=== PATIENT | male | born 1965 | race Caucasian/White ===

== ENCOUNTER 2016-10-30 02:46 | Inpatient (IN) | payer OTHER ==
[~2016-10-30] VITALS: Ht 180.3 cm; Wt 88.7 kg
[2016-10-30] VITALS (25 sets, daily range): BP systolic 98–134; BP diastolic 71–102; PULSE 73–114; TEMP 36.5–36.8; O2SAT 86–99; Ht 180.3 cm; Wt 88.7 kg
[~2016-10-30 02:46] MED LIST: AMT10 PO
--- NOTE | 2016-10-30 02:54 | EMERGENCY ROOM VISIT NOTE ---
History Report prepared by Nicholas: Tonia Mittal Under the Supervision of: Dr. Layton Diaz M.D. First contact with patient: 02:46 Stated Complaint: CHEST PAIN/HEART ALERT History of Present Illness The patient is a 50 year old male who presents to the Emergency Room with complaints of intermittent chest pain over the last few days. He currently rates his discomfort as a 6.5/10 in severity. The patient states that over the last few days he has had intermittent chest pain, but states that this evening he developed crushing substernal chest pain that radiates into his neck. He describes his neck pain as a brain freeze. The patient states that earlier this evening he had pain radiate into his back. He additionally associates nausea with his symptoms today. The patient states that he has been a smoker for the past 38 years, noting that he smokes one pack per day. He denies any personal history of heart disease, or any active medical problems. The patient notes a family history of hypertension, but denies any family history of heart disease. The patient states that he took 324 mg of aspirin prior to arrival. The patient denies taking any daily medications. EMS elected not to give the patient nitroglycerin, because the patient was initially hypotensive. Source of History: patient Onset: last few days Position: chest Symptom Intensity: 6.5/10 Quality: other (crushing) Timing: intermittent Associated Symptoms: + back pain, + nausea, + neck pain Review of Systems See HPI for pertinent positives & negatives. A total of 10 systems reviewed and were otherwise negative. Past Medical & Surgical Medical Problems: (1) Acute AR (2) No chronic problems Family History Hypertension Social History Smoking Status: Current Every Day Smoker Marital Status: Housing Status: lives with significant other Occupation Status: employed Current/Historical Medications No Active Prescriptions or Reported Meds Allergies Coded Allergies: No Known Allergies (Unverified , 10/30/16) Physical Exam Vital Signs Date Time Temp Pulse Resp B/P Pulse Ox O2 Delivery O2 Flow Rate FiO2 10/30/16 05:40 87 16 138/85 98 Nasal Cannula 2 10/30/16 05:30 85 16 132/87 98 Nasal Cannula 2 10/30/16 05:25 87 16 124/98 98 Nasal Cannula 2 10/30/16 03:00 86 20 116/92 Nasal Cannula 4.0 10/30/16 02:58 87 136/105 10/30/16 02:51 36.5 118 24 136/105 99 Room Air 10/30/16 02:50 108 10/30/16 02:48 Room Air Physical Exam GENERAL: Patient is ill appearing, mild distress, diaphoretic HEENT: No acute trauma, normocephalic atraumatic, mucous membranes moist, no nasal congestion, no scleral icterus. NECK: No stridor, no adenopathy, no meningismus, trachea is midline. LUNGS: No dyspnea. Clear to auscultation and equal bilaterally. No wheeze, no rhonchi. HEART: Irregular rate that is tachycardic. No murmurs, rubs, gallops appreciated. ABDOMEN: Soft, nontender, bowel sounds positive, no masses appreciated, no peritonitis. BACK: No midline tenderness, no CVA tenderness EXTREMITIES: Normal motion all extremities, no cyanosis, no edema. NEUROLOGIC: Alert and oriented, no acute motor or sensory deficits, no focal weakness, cranial nerves grossly intact. SKIN: No rash, no jaundice, no diaphoresis. Medical Decision & Procedures ER Provider Diagnostic Interpretation: X ray results are stated below per my interpretation: Chest: 1 view: No infiltrate, no effusion, normal cardiac border. Laboratory Results Test 10/30/16 02:34 10/30/16 02:55 10/30/16 02:56 10/30/16 05:13 RDW Standard Deviation 47.9 fL (36.4-46.3) RDW Coefficient of Variation 14.1 % (11.5-14.5) White Blood Count 13.52 K/uL (4.8-10.8) Red Blood Count 5.14 M/uL (4.7-6.1) Hemoglobin 16.9 g/dL (14.0-18.0) Hematocrit 47.4 % (42-52) Mean Corpuscular Volume 92.2 fL (80-100) Mean Corpuscular Hemoglobin 32.9 pg (25-34) Mean Corpuscular Hemoglobin Concent 35.7 g/dl (32-36) Platelet Count 241 K/uL (130-400) Mean Platelet Volume 11.4 fL (7.4-10.4) Neutrophils (%) (Auto) 65.8 % Lymphocytes (%) (Auto) 27.4 % Monocytes (%) (Auto) 4.8 % Eosinophils (%) (Auto) 1.3 % Basophils (%) (Auto) 0.3 % Neutrophils # (Auto) 8.91 K/uL (1.4-6.5) Lymphocytes # (Auto) 3.70 K/uL (1.2-3.4) Monocytes # (Auto) 0.65 K/uL (0.11-0.59) Eosinophils # (Auto) 0.17 K/uL (0-0.5) Basophils # (Auto) 0.04 K/uL (0-0.2) Immature Granulocyte % (Auto) 0.4 % Immature Granulocyte # (Auto) 0.05 K/uL (0.00-0.02) Prothrombin Time 10.0 SECONDS (9.0-12.0) Prothromb Time International Ratio 0.9 (0.9-1.1) Activated Partial Thromboplast Time 25.6 SECONDS (21.0-31.0) Partial Thromboplastin Ratio 1.0 Est Creatinine Clear Calc Drug Dose 67.2 ml/min Bedside Troponin I 0.040 ng/ml (0-0.045) Bedside Hemoglobin 17.0 g/dl (14.0-18.0) Bedside Hematocrit 50 % (42-52) Bedside Sodium 140 mEq/L (135-144) Bedside Potassium 4.7 mEq/L (3.3-5.0) Bedside Chloride 105 mEq/L (101-112) Bedside Total CO2 24 mEq/l (24-31) Bedside Blood Urea Nitrogen 23 mg/dl (7-18) Bedside Creatinine 1.1 mg/dl (0.6-1.3) Bedside Glucose (other) 151 mg/dl (70-99) Bedside Ionized Calcium (Elvie) 1.14 mmol/l (1.12-1.32) Kaolin Activated Coagulation Time 281 SECONDS (94-140) Test 10/30/16 05:49 Creatine Kinase MB Ratio (0-3.0) Laboratory results as reviewed by me. Medications Administered Medications (Trade) Dose Ordered Sig/Nicole Route Start Time Stop Time Status Last Admin Dose Admin Heparin Sodium (Porcine) (Heparin Iv Bolus) 10,000 unit STK-MED ONCE .ROUTE 10/30/16 02:58 10/30/16 02:59 DC 10/30/16 02:58 9,000 UNIT Midazolam HCl (Versed Inj) 2 mg STK-MED ONCE .ROUTE 10/30/16 02:58 10/30/16 02:59 DC 10/30/16 02:58 2 MG Fentanyl Citrate (Fentanyl Inj) 100 mcg STK-MED ONCE .ROUTE 10/30/16 02:58 10/30/16 02:59 DC 10/30/16 02:58 50 MCG Metoprolol Tartrate (Lopressor Iv) 5 mg STK-MED ONCE .ROUTE 10/30/16 02:59 10/30/16 03:00 DC 10/30/16 02:58 5 MG Dopamine HCl/ Dextrose (DOPamine 400MG / D5W) 400 mg STK-MED ONCE .ROUTE 10/30/16 03:21 10/30/16 03:22 DC 10/30/16 03:21 400 MG Ondansetron HCl (Zofran Inj) 4 mg STK-MED ONCE .ROUTE 10/30/16 03:23 10/30/16 03:24 DC 10/30/16 03:23 4 MG Atropine Sulfate (Atropine Sulfate) 2 mg STK-MED ONCE .ROUTE 10/30/16 03:48 10/30/16 03:49 DC 10/30/16 03:48 2 MG Lidocaine/ Epinephrine (Xylocaine/Epine 1% Inj) 20 ml STK-MED ONCE .ROUTE 10/30/16 04:12 10/30/16 04:13 DC 10/30/16 04:12 20 ML Heparin Sodium (Porcine) (Heparin Iv Bolus) 20,000 unit STK-MED ONCE .ROUTE 10/30/16 04:35 10/30/16 04:36 DC 10/30/16 04:35 10,000 UNIT Eptifibatide (Integrilin Inj) 75 mg STK-MED ONCE IV 10/30/16 04:45 10/30/16 04:46 DC 10/30/16 04:43 75 MG Eptifibatide (Integrilin Inj) 60 mg STK-MED ONCE IV 10/30/16 04:45 10/30/16 04:46 DC 10/30/16 04:43 60 MG Midazolam HCl (Versed Inj) 2 mg STK-MED ONCE .ROUTE 10/30/16 04:57 10/30/16 04:58 DC 10/30/16 04:52 1 MG Clopidogrel Bisulfate (plAVix TAB) 600 mg STK-MED ONCE PO 10/30/16 05:45 10/30/16 05:46 DC 10/30/16 05:45 600 MG ECG Indication: chest pain Rate (beats per minute): 117 Rhythm: atrial fibrillation (with RVR ) Findings: ST elevation (anterolateral/inferior), other (RVR) ED Course 0246: The patient was evaluated in room B1. A complete history and physical exam was performed. 0248: Dr. Forrest, Cardiology arrived at bedside. Ordered Fentanyl Inj 100 mcg .route, Versed Inj 2 mg .route, Heparin IV Bolus 93342 unit .4oute, Cardene IV 25 mg .route, Lopressor IV 5 mg .route, Nitroglycerin/Dextrose 2000 mcg .route, Heparin Sodium/Sodium Chloride 1000 unit .route. 0256: I talked with the patients family at this time and updated them on the treatment plan. 0300: I reevaluated the patient and updated him that I spoke to his family. He agrees and understands the treatment plan. He was taken to the [facility] lab[facility]. The patient's heart rate was in the 80s at this time and his chest pain had improved. Medical Decision Differential: Cardiac Ischemia (STEMI, NSTEMI, Unstable Angina, etc), Aortic Dissection, Arrhythmia, Pulmonary Embolism, Pneumonia, Pneumothorax, MSK, Infectious, Pericarditis/Myocarditis, Esophageal Rupture, Gastrointestinal, amongst other pathologies entertained. 50 yr old male with 40 pack year smoking history and no past medical history. Notes unstable chest pain over last few days but severe episode this evening radiating to neck that has been ongoing for last 2 hours. ASA 324mg prior to EMS followed by Morphine/Zofran/fluids by EMS. EMS note patient with hypotension on there arrival and bradycardia thus no nitro given. Med command with me and given Fentanyl IV for further pain control. On arrival in Afib RVR and mild hypertensive. Given 5mg IV Lopressor. Pain much improved. Good bilateral leg pulses, clear cxr and symptoms not consistent with dissection thus I feel that delaying cath to do CT chest would not be beneficial. No significant PE risks nor symptoms. EKG with clear STEMI and heart alert called prior to EMS arrival. Unusual STEMI in that diffuse ST elevations with only mild recipricals, but given symptoms and findings I do not feel this represents pericarditis. HgB OK, CR 1.1 and trop non-negative but still within normal limits. Cardiology at bedside and will take emergently to supervisor laboratory animal facility. I made /family aware of proceedings. Patient transferred to cath feeling improved with improved HR. Impression Primary Impression: STEMI (ST elevation myocardial infarction) Additional Impression: Atrial fibrillation with RVR Critical Care I have personally spent greater than 35 minutes of critical care time in the direct management of this patient. This was a life/limb threatening event. This includes time spent evaluating patient, direct bedside care, chart review, placing orders, interpretation of diagnostic studies, discussion with consultants, patient, and family members, as well as other required patient management activities. This 35 minutes is in excess of all separately billable procedures. Scribe Attestation The scribe's documentation has been prepared under my direction and personally reviewed by me in its entirety. I confirm that the note above accurately reflects all work, treatment, procedures, and medical decision making performed by me. 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
[2016-10-30 02:58] LABS: BASO % 0.3 %; BASO ABS # 0.04 K/uL (0-0.2); COMPLETE YES; EOS % 1.3 %; HEMATOCRIT 47.4 % (42-52); IG% 0.4 %; LYMPH % 27.4 %; MEAN CELL VOLUME 92.2 fL (80-100); MEAN CORPUSCULAR HEMOGLOBIN 32.9 pg (25-34); MEAN CORPUSCULAR HGB CONC 35.7 g/dl (32-36); MEAN PLATELET VOLUME 11.4 fL (7.4-10.4); MONO % 4.8 %; NEUT % 65.8 %; PLATELET COUNT 241 K/uL (130-400); RED BLOOD COUNT 5.14 M/uL (4.7-6.1); WHITE BLOOD COUNT 13.52 K/uL (4.8-10.8)
[2016-10-30] MEDS ORDERED: HEPARIN SOD (PORCINE) 1000 UNIT/ML 10 ML VIAL ONE ×2 (02:58→04:35)
[2016-10-30] MEDS ORDERED: MIDAZOLAM HCL 1 MG/ML 2ML VIAL ONE ×2 (02:58→04:57)
[2016-10-30] MEDS ORDERED: NiCARDipine HCL INJ 2.5 MG/ML 10 ML AMP ONE (02:58)
[2016-10-30] MEDS ORDERED: FENTANYL CITRATE INJ 50 MCG/1 ML 2 ML VIAL ONE (02:58)
[2016-10-30] MEDS ORDERED: NITROGLYCERIN/D5W 100MCG/ML 20ML SYR ONE (02:59)
[2016-10-30] MEDS ORDERED: METOPROLOL TARTRATE 1 MG/ML VIAL ONE (02:59)
[2016-10-30 03:05] LABS: INR 0.9 (0.9-1.1)
[2016-10-30 03:10] LABS: ISTAT CREATININE 1.1 mg/dl (0.6-1.3); ISTAT IONIZED CALCIUM 1.14 mmol/l (1.12-1.32)
[2016-10-30 03:17] LABS: BUN/CREATININE RATIO 12.6 (10-20); CALCIUM 9.2 mg/dl (8.5-10.1); CREATININE 1.4 mg/dl (0.60-1.40); POTASSIUM 4.2 mmol/L (3.5-5.1)
[2016-10-30 03:21] LABS: CKMB/CK RATIO 3.1 (0-3.0)
[2016-10-30] MEDS ORDERED: DOPamine 400MG / 250ML D5W ONE (03:21)
[2016-10-30] MEDS ORDERED: ONDANSETRON INJ 2 MG/ML 2 ML VIAL ONE (03:23)
[2016-10-30] MEDS ORDERED: ATROPINE SULFATE 0.1 MG/ML 10 ML SYR ONE (03:48)
[2016-10-30] MEDS ORDERED: LIDOCAINE/EPINEPHRINE 1% 20 ML VIAL ONE (04:12)
[2016-10-30] MEDS ORDERED: EPTIFIBATIDE 0.75 MG/ML 75MG VIAL IV ONE (04:45)
[2016-10-30] MEDS ORDERED: EPTIFIBATIDE 2 MG/ML 10 ML VIAL IV ONE (04:45)
[2016-10-30] MEDS ORDERED: CLOPIDOGREL BISULFATE 300 MG TAB PO ONE (05:45)
[2016-10-30] MEDS ORDERED: MoRPHine SULFATE 2 MG/ML CARP IV PRN (06:00)
[2016-10-30] MEDS ORDERED: EPTIFIBATIDE BOLUS / DRIP IV ONE (06:00)
[2016-10-30] MEDS ORDERED: MAGNESIUM HYDROXIDE SUSP 30 ML UDC PO PRN (06:00)
[2016-10-30] MEDS ORDERED: ONDANSETRON INJ 2 MG/ML 2 ML VIAL IV PRN (06:00)
[2016-10-30] MEDS ORDERED: LEVALBUTEROL 1.25MG/3ML NEB INH PRN (06:00)
[2016-10-30] MEDS ORDERED: ONDANSETRON INJ 8 MG in DEXTROSE 5% 50ML 50 ML IV PRN (06:00)
[2016-10-30] MEDS ORDERED: ATROPINE SULFATE 0.1 MG/ML 5ML SYR IV PRN (06:00)
[2016-10-30] MEDS ORDERED: ALUMINUM/MAGNESIUM/SIMETH (MAALOX MAX) 30 ML UDC PO PRN (06:00)
[2016-10-30] MEDS ORDERED: ACETAMINOPHEN 325 MG TAB PO PRN (06:00)
[2016-10-30] MEDS ORDERED: LORAZEPAM INJ 0.5 MG in SYRINGE 0 ML IV PRN (06:00)
[2016-10-30] MEDS ORDERED: LORAZEPAM 2 MG/ML 1 ML VIAL IV PRN (06:30)
[2016-10-30] MEDS ORDERED: Integrelin infusion --> STOP ORDER ONE (07:00)
--- NOTE | 2016-10-30 07:19 | DIAGNOSTIC IMAGING REPORT ---
CHEST ONE VIEW PORTABLE HISTORY: Atypical Chest Pain COMPARISON: None. FINDINGS: The lungs are clear. Cardiac silhouette is top normal in size. No pleural effusions. No pneumothorax. IMPRESSION: No acute process. Electronically signed by: Jhon Vargas M.D. 10/30/2016 7:17 AM Dictated Date/Time: 10/30/2016 7:16 AM
[2016-10-30 07:23] LABS: HEMATOCRIT 44.5 % (42-52); MEAN CELL VOLUME 91.9 fL (80-100); MEAN CORPUSCULAR HEMOGLOBIN 31.2 pg (25-34); MEAN CORPUSCULAR HGB CONC 33.9 g/dl (32-36); PLATELET COUNT 241 K/uL (130-400); RED BLOOD COUNT 4.84 M/uL (4.7-6.1); WHITE BLOOD COUNT 16.13 K/uL (4.8-10.8)
[2016-10-30 07:39] LABS: COMPLETE YES; LYMPH ABS # 1.68 K/uL (1.2-3.4); LYMPHOCYTE % 10.4 %
[2016-10-30] MEDS: ASPIRIN 81 MG ECTAB PO SCH (07:57)
[2016-10-30] MEDS: METOPROLOL TARTRATE 25 MG TAB PO SCH ×2 (07:58→20:34)
[2016-10-30] MEDS: ATORVASTATIN 40 MG TAB PO SCH (07:58)
[2016-10-30] MEDS: RANITIDINE HCL 150 MG TAB PO SCH ×2 (08:00→20:34)
[2016-10-30] MEDS: EPTIFIBATIDE INJ 75 MG PREMIXED IV SCH ×3 (08:00→20:33)
[2016-10-30] MEDS: LISINOPRIL 5 MG TAB PO SCH (08:01)
[2016-10-30 08:06] LABS: ALKALINE PHOSPHATASE 107 U/L (45-117); ALT/SGPT 130 U/L (12-78); BLOOD UREA NITROGEN 17 mg/dl (7-18); BUN/CREATININE RATIO 15.7 (10-20); CALCIUM 8.4 mg/dl (8.5-10.1); CARBON DIOXIDE 25 mmol/L (21-32); CHLORIDE 107 mmol/L (98-107); CHOLESTEROL 183 mg/dl (0-200); CHOLESTEROL/HDL RATIO 4.9; GLUCOSE 117 mg/dl (70-99); HDL CHOLESTEROL 37 mg/dl; LDL CHOLESTEROL CALCULATED 133 mg/dl; SODIUM 141 mmol/L (136-145); THYROID STIMULATING HORMONE 0.806 uIu/ml (0.300-4.500); TRIGLYCERIDES 66 mg/dl (0-150); VERY LOW DENSITY LIPOPROT CALC 13 mg/dl
--- NOTE | 2016-10-30 08:21 | HISTORY & PHYSICAL EXAMINATION ---
DATE OF ADMISSION: 10/30/2016 PRIMARY PHYSICIAN: [facility]. ADMITTING AND ATTENDING PHYSICIAN: Kory Forrest MD HISTORY OF PRESENT ILLNESS: The patient is a 50-year-old white male. No prior history of heart disease. He does have a history of hypertension. In the past this was treated with medications. He has been noncompliant with his medications as well as primary care followup. At the time of admission, he was taking no prescription medications. In the several days prior to admission, he had been experiencing recurrent episodes of a retrosternal chest pressure. These episodes occurred predominantly at rest in the evening. The episodes would last for 5 minutes and then spontaneously resolve. 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 He states that with physical activities last week he did not have any significant chest pain. While watching television tonight he developed severe retrosternal chest pain radiating into his neck, associated diaphoresis, nausea, weakness, and dyspnea. He called 911. Emergency medical services performed electrocardiogram in the field. This revealed both inferior and anterior ST segment elevations. Based on his electrocardiogram in the field a heart alert was called. The patient had taken aspirin at home. Emergency medical services reported that the patient was having intermittent atrial fibrillation while being transported. This would be with rapid ventricular response. Another electrocardiogram revealed a junctional or ectopic atrial rhythm. He also had episodes of bradycardia while being transported. On arrival to the Emergency Department, he was in marked distress. He was in atrial fibrillation. The ventricular rate was elevated. His initial blood pressure in the Emergency Department was 136/105. The patient was promptly evaluated by Dr. Layton Diaz on his arrival to the Emergency Department. He was evaluated by me upon my arrival to the Emergency Department. This was initially after his arrival. He was given 5 mg of intravenous metoprolol because of the hypertension, elevated heart rate, and severe chest discomfort. Following acquisition of informed consent, he was brought emergently to the cardiac catheterization laboratory. In the Emergency Department, his right radial pulse is strongly palpable. By the time he arrived in the [place], his radial pulse was no longer palpable. His femoral pulse was barely palpable. A 6-Bruneian sheath was inserted into the right femoral artery. His initial aortic pressure was 66/45/52. Right coronary angiography was first performed that was felt based on his electrocardiogram that he was having an acute inferior myocardial infarction. On initial angiography the RCA was not visualized. With manipulation of the catheter there was evidence of a total RCA occlusion. With further manipulation of the catheter it appeared that the guide catheter tip actually advanced past the site of the ostial occlusion. The RCA was then visualized. On further RCA angiography there was again a total ostial RCA occlusion. Following passage of guidewire and balloon inflations to the ostial and proximal RCA, JASE 3 flow was present into the distal RCA. There remained a severe ostial stenosis. A 3.0 x 18 mm Rider Xience stent was then deployed in the ostial and proximal RCA. Following the stent deployment, there was probable dissection as well as spasm in the segment of the proximal RCA just after the stent. With the administration of intracoronary nicardipine there was improvement in spasm. However, it was felt that there was still a potential residual dissection just distal to the stent. There also appeared to be luminal diameter narrowing in the early mid RCA. A second Rider Xience drug-eluting stent was then deployed distal to the first stent, but in an overlapping fashion. This was a 2.75 x 23 mm stent. The overlap sited the 2 stents was postdilated with the second stent delivery balloon. Noncompliant balloon inflations were then performed to the ostium of the RCA as well as the proximal RCA using a 3.5 x 12 mm noncompliant balloon. Following these post-stent balloon inflations, the residual stenosis in the ostium of the RCA and the proximal RCA was 0%-10%. The mid RCA just distal to the stented region had a 20% stenosis. The distal RCA had a 20% stenosis. Collateral flow was present from the distal RCA to a prominent right ventricular branch. The distal RCA gave rise to a long medium caliber posterior descending artery and a long small caliber posterolateral artery. These vessels had minor luminal irregularities. No collateral flow was present from the RCA to the LAD. During the RCA intervention, the patient had the severe hypotension. He also developed severe bradycardia with rates in the 30s. He was given a total of 2 mg of intravenous atropine. He was placed on intravenous dopamine. The dopamine needed to be increased to 20 mcg per kilogram per minute temporarily to maintain an adequate blood pressure. Following reperfusion of the RCA, his chest discomfort improved. Following RCA intervention, his ST segment elevations improved. His blood pressure improved and the dopamine was able to be decreased and then subsequently discontinued. Follow up RCA angiography was then performed from orthogonal projections with the guidewire in place and then withdrawn. Left coronary angiography was then performed. On the initial left coronary angiogram, there was a total mid LAD occlusion. Following this, initial angiograms the patient developed severe recurrent chest pain and marked ST segment elevations on the monitored leads. The total occlusion was after the origin of a prominent diagonal branch. Following passage of a guidewire into the distal LAD, there remained JASE 0 flow. A 2.5 mm balloon was then advanced to the mid LAD. There was great difficulty in passing the balloon into the mid LAD consistent with the severe underlying stenosis. Three balloon inflations were then performed to the mid LAD. JASE 2 flow was established into the distal LAD. Repeat balloon inflations were then performed to the mid LAD using a 2.0 x 15 mm balloon dilatation catheter. As well as this underlying stenosis there was evidence of extensive thrombus formation in the mid LAD. This involved the origin of a long and prominent second diagonal branch. Following balloon inflations as well as the administration referred boluses of Integrilin (the patient already received 2 boluses of Integrilin as well as maintenance infusion during RCA intervention). He had also been given intravenous heparin during the procedure. Because of activated clotting time was less than 200 he was given additional heparin. He was subsequently documented to have a therapeutic activated clotting time. Following the administration of further intercoronary nicardipine the appearance of the mid LAD improved. However, there still appeared to be a significant residual stenosis in the mid LAD distal to the second diagonal. The ostial diagonal stenosis improved. A 2.25 x 18 mm Xience stent was then deployed in the mid LAD. The proximal portion of the stent was positioned just distal to the origin of the second diagonal. Following stent deployment, there was JASE 3 flow into the apical LAD. The distal LAD was a very small caliber. The residual stenosis at the stent site was 0%-10%. There was no evidence of any residual thrombus. No evidence of dissection, perforation, or distal embolic event. The ostium of the second diagonal had a 75% stenosis. There was JASE 3 flow in the LAD. Also, the ostium in the left circumflex has 30%-50% stenosis. The mid circumflex gave rise to a long medium caliber bifurcating marginal artery. The mid circumflex had a 30% stenosis. The inferior branch of the marginal had a 30%-50% stenosis. Left ventricular angiography performed following completion of coronary intervention revealed the posterior basal and anterobasal segments to contract normally. Diaphragmatic segment was hypokinetic. The apex was hypokinetic. The anterolateral segment had mild hypokinesis. The estimated LV ejection fraction was 50%. No mitral regurgitation was noted. Right femoral artery angiography revealed the sheath to be present in the lower right common femoral artery. No obstructive disease was noted in the femoral artery, superficial femoral artery, profunda artery, or external iliac artery. Hemostasis was obtained at the right femoral catheterization site with deployment of a 6-Bruneian Star[employer] vascular closure system. In the catheterization lab there was no evidence of any bleeding or hematoma at the right femoral catheterization site. His chest discomfort had almost completely resolved. He was hemodynamically stable. When he left the catheterization lab, he was no longer on intravenous dopamine. His final blood pressure was 112/81/95. His left ventricular end-diastolic pressure was elevated at 29 mmHg. During the procedure, the patient was given a total of 526 mL of normal saline. This was for his hypertension and presumed right ventricular involvement with the myocardial infarction. In the [employer] [place] he was also given intravenous Zofran for nausea. Post-PCI, he was given 600 mg of oral clopidogrel. PAST MEDICAL HISTORY: 1. Hypertension. 2. He denies history of diabetes. He denies any history of dyslipidemia. 3. History of postprandial abdominal discomfort in 2004. This was in epigastric region. Subsequent EGD revealed no abnormality. PAST SURGICAL HISTORY: Status post laparoscopic cholecystectomy in January 2007. MEDICATIONS AT THE TIME OF ADMISSION: None. ALLERGIES: None. SOCIAL HISTORY: The patient is and lives with his . He stopped drinking alcohol 1 year ago. He has smoked cigarettes for at least 38 years. He was smoking up to 1 pack a day at the time of admission. 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 FAMILY HISTORY: He denies any family history of premature coronary artery disease. There is a family history of hypertension. REVIEW OF SYSTEMS: 1. As above. 2. No bleeding complaints. 3. No cerebrovascular or peripheral vascular complaints. 4. No pulmonary, GI, or urinary complaints. PHYSICAL EXAMINATION: GENERAL: On arrival to the catheterization lab he was in severe distress. VITAL SIGNS: His initial blood pressure by blood pressure cuff in [employer] [place] was 79/60. His heart rate was 59. Thereafter, he developed further decrease in his blood pressures as well as decrease in his heart rate. GENERAL APPEARANCE: Showed him to be in distress secondary to his myocardial infarction. HEAD: Normal. EYES: Pupils are equal and round. Anicteric. Conjunctivae normal. NECK: No jugular venous distention. Carotids 2/2 bilaterally. Normal upstroke. No bruits. LUNGS: Normal respiratory effort. Clear. No rales or wheezes. HEART: PMI not palpable. No lifts or heaves. Irregularly irregular. No murmur, S3, or rub. ABDOMEN: Soft. Nontender. No palpable masses or organomegaly. No bruits. EXTREMITIES: No pretibial edema. No cyanosis or clubbing. NEUROLOGIC: Alert and oriented x3. Motor grossly intact. PSYCHIATRIC: Affect normal. Appropriate for his critical condition on arrival. DATA: Cardiac catheterization findings and interventional findings as above. Electrocardiogram in the Emergency Department revealed atrial fibrillation with ventricular rate [address] segment elevations in leads 2, 3, aVF. ST segment elevations in V3-V6. ST depressions 1 and aVL. Chest x-ray performed in the Emergency Department and reviewed by me revealed mild pulmonary vascular congestion. No infiltrate. Initial labs revealed WBC 13.52, hemoglobin 16.9, hematocrit 47.4, platelet count 241. INR 0.9. Initial metabolic profile -- sodium 143, potassium 4.2, chloride 105, carbon dioxide 28, BUN 18, creatinine 1.40, random glucose 174. CK total 85 with MB of 2.6. Troponin I 0.015. ASSESSMENT: 1. Acute inferior myocardial infarction secondary to total ostial RCA occlusion. Subsequent successful intervention to the RCA occlusion. Deployment of 2 drug-eluting stents in the proximal and ostium segments of the RCA. JASE 3 flow in RCA following RCA intervention. 2. Severe mid LAD stenosis. Development of acute thrombus in the mid after initial left coronary artery angiography. Suspect that the injection of contrast dye precipitated formation of thrombus at the site of severe injection. There was great difficulty in passing a balloon across the mid LAD stenosis. There was a significant waist on the balloon dilatation catheter on initial balloon inflations to the mid LAD. The balloon eventually fully expanded. These findings are consistent with a patient having had a severe underlying mid LAD stenosis. Successful emergency intervention to the mid LAD. Deployment of a drug-eluting stent. He has a moderate ostial LAD diagonal stenosis. This diagonal rises just proximal to the mid LAD stent. It was opted not to perform stent deployment in the mid LAD across the ostium of the LAD diagonal. This would likely have completely occluded flow into the diagonal. This would then require a bifurcation stent procedure. At this time of the procedure the patient had already had a significant contrast dye and radiation exposure dose. Following intervention to the mid LAD his chest pain almost completely resolved. The ST segment changes on electrocardiogram (monitored leads), completely resolved. He was hemodynamically stable. The dopamine was able to be completely discontinued. His heart rate was in the 80s-90s. It was felt best not to perform any further intervention to the LAD. 3. Mildly reduced overall left ventricular systolic function on post-intervention LV angiography. 4. No evidence of heart failure on exam. Evidence of mild pulmonary vascular congestion on chest x-ray. 5. Severe hypotension and bradycardia complicating the myocardial infarction. Consistent with RCA infarct with RV involvement. 6. Atrial fibrillation. The ventricular response varied from severe bradycardia to rapid ventricular response. At the completion of the procedure, the ventricular rate was controlled. He was hemodynamically stable. 7. In the [employer] [place], no evidence of any vascular complications. When the patient was in the intensive care unit, he had a coughing episode. He then developed bleeding at the right femoral catheterization site and a small hematoma. This was controlled with manual pressure. 8. Coronary artery disease risk factors include hypertension and longstanding smoking history. Suspect he also has a significant dyslipidemia. 9. Mild to moderate atherosclerotic disease in the left circumflex coronary artery. PLAN: 1. He was given a 600 mg loading dose of clopidogrel post-PCI. He would need to remain on aspirin and clopidogrel or an alternative antiplatelet agent for at least 1 year. Aspirin therapy indefinitely. 2. Will continue intravenous Integrilin for 24 hours. 3. If he remains in atrial fibrillation and if there is no further evidence of bleeding at the right femoral catheterization site, will start anticoagulation therapy with intravenous heparin. This would be in addition to the intravenous Integrilin. Though the Integrilin is an antiplatelet agent. 4. Start maximum dose atorvastatin 80 mg daily. 5. Metoprolol tartrate 25 mg b.i.d. and lisinopril 5 mg daily as tolerated by blood pressure and heart rate. 6. Serial electrocardiograms and cardiac enzymes. 7. Post-Integrilin CBC. 8. Echocardiogram to further assess LV function and to assess RV function. 9. Refer to cardiac rehabilitation and smoking cessation counseling. 10. Medical consultation with the [facility] service. The patient's primary care provider is a [facility] physician. 11. [facility] consultation. Over 90 minutes of critical care time was spent in management of this patient by me bates. This was in addition to the time spent during the cardiac catheterization procedure performing coronary angiography and coronary intervention. FLO
[2016-10-30] MEDS: CLOPIDOGREL BISULFATE 75 MG TAB PO SCH (08:24)
[2016-10-30 08:25] LABS: ESTIMATED AVERAGE GLUCOSE 128 mg/dl; HA1C FLAG Normal (Normal)
--- NOTE | 2016-10-30 08:41 | History and Physical ---
History & Physical Date & Time of Service: Oct 30, 2016 at 08:27 Chief Complaint: Acute Mi Primary Care Physician: No Doctor, Assigned History of Present Illness Source: patient, hospital records 50 year old male with history of hypertension, chronic smoking presenting with chest pain. Patient was in his usual state of health until a week ago when he started to have intermittent chest pain, radiating to the neck with exertion. Last evening, before going to bed, patient experienced nausea, diaphoresis followed by severe left sided chest pain radiating to his neck. 911 was summoned and patient was brought to the ER. On arrival, BP was 136/105, HR 108. EKG showed Afib with ST elevations in the inferior and anterolateral leads. Initial troponin 0.015. Patient then underwent emergent Cardiac Catheterization and had stents placed on the RCA and LAD. He was then transferred to the ICU. On exam, patient was in a fib with HR low 100s, BP stable. He is comfortable, pleasant, states chest pain is just mild, no nausea/dyspnea/ palpitations/dizziness. Denies groin pain. Family History Hypertension Social History Smoking Status: Current Every Day Smoker Alcohol Use: occasionally Drug Use: none Marital Status: Housing status: lives with family Occupational Status: employed Multi-Drug Resistant Organisms History of MDRO: No Allergies Coded Allergies: No Known Allergies (Unverified , 10/30/16) Home Medications No Active Prescriptions or Reported Meds Review of Systems Constitutional- no fever; no weight loss Eyes- no acute visual changes ENT- no sinus drainage; no pharyngitis Pulmonary- no cough, no wheezing, no shortness of breath Cardiac- (+) as noted above GI- (-) nausea, no vomiting, no diarrhea, no melena, no hematochezia - no dysuria, no hematuria Musculoskeletal- no arthralgias, no myalgias Derm- no rashes, no new skin lesions, no changing skin lesions Hematologic- no unusual bruising, no unusual bleeding Lymphatics- no adenopathy Endocrine- no polyuria or polydipsia; no heat or cold intolerance Neuro- no headaches, no focal neurologic symptoms Psych- no anxiety, no depression Physical Exam Vital Signs Date Time Temp Pulse Resp B/P Pulse Ox O2 Delivery O2 Flow Rate FiO2 10/30/16 06:36 36.5 103 18 120/102 93 Room Air 10/30/16 06:15 98 12 93 10/30/16 06:00 36.5 105 16 120/102 95 10/30/16 05:40 87 16 138/85 98 Nasal Cannula 2 10/30/16 05:30 85 16 132/87 98 Nasal Cannula 2 10/30/16 05:25 87 16 124/98 98 Nasal Cannula 2 10/30/16 03:00 86 20 116/92 Nasal Cannula 4.0 10/30/16 02:58 87 136/105 10/30/16 02:51 36.5 118 24 136/105 99 Room Air 10/30/16 02:50 108 10/30/16 02:48 Room Air General Appearance: WD/WN, no apparent distress Head: normocephalic, atraumatic Eyes: normal inspection, EOMI, sclerae normal ENT: normal ENT inspection, hearing grossly normal, pharynx normal Neck: supple, no adenopathy, thyroid normal, no JVD, trachea midline Respiratory/Chest: chest non-tender, lungs clear, normal breath sounds, no respiratory distress, no accessory muscle use Cardiovascular: no edema, no JVD, no murmur, + tachycardia, + irregularly irregular Abdomen/GI: normal bowel sounds, non tender, soft, no organomegaly Back: normal inspection, no CVA tenderness Extremities/Musculoskelatal: normal inspection, no calf tenderness, normal capillary refill, no pedal edema Neurologic/Psych: 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 as tested, no motor/sensory deficits, alert, normal mood/affect, normal reflexes, oriented x 3 Skin: normal color, warm/dry, no rash Lymphatic: no adenopathy Diagnostics Laboratory Results Results Past 24 Hours Test 10/30/16 02:34 10/30/16 02:55 10/30/16 02:56 10/30/16 03:45 Range/Units White Blood Count 13.52 4.8-10.8 K/uL Red Blood Count 5.14 4.7-6.1 M/uL Hemoglobin 16.9 14.0-18.0 g/dL Hematocrit 47.4 42-52 % Mean Corpuscular Volume 92.2 80-100 fL Mean Corpuscular Hemoglobin 32.9 25-34 pg Mean Corpuscular Hemoglobin Concent 35.7 32-36 g/dl Platelet Count 241 130-400 K/uL Mean Platelet Volume 11.4 7.4-10.4 fL Neutrophils (%) (Auto) 65.8 % Lymphocytes (%) (Auto) 27.4 % Monocytes (%) (Auto) 4.8 % Eosinophils (%) (Auto) 1.3 % Basophils (%) (Auto) 0.3 % Neutrophils # (Auto) 8.91 1.4-6.5 K/uL Lymphocytes # (Auto) 3.70 1.2-3.4 K/uL Monocytes # (Auto) 0.65 0.11-0.59 K/uL Eosinophils # (Auto) 0.17 0-0.5 K/uL Basophils # (Auto) 0.04 0-0.2 K/uL RDW Standard Deviation 47.9 36.4-46.3 fL RDW Coefficient of Variation 14.1 11.5-14.5 % Immature Granulocyte % (Auto) 0.4 % Immature Granulocyte # (Auto) 0.05 0.00-0.02 K/uL Prothrombin Time 10.0 9.0-12.0 SECONDS Prothromb Time International Ratio 0.9 0.9-1.1 Activated Partial Thromboplast Time 25.6 21.0-31.0 SECONDS Partial Thromboplastin Ratio 1.0 Sodium Level 143 136-145 mmol/L Potassium Level 4.2 3.5-5.1 mmol/L Chloride Level 105 98-107 mmol/L Carbon Dioxide Level 28 21-32 mmol/L Anion Gap 10.0 16.0 16-25 mmol/L Blood Urea Nitrogen 18 7-18 mg/dl Creatinine 1.40 0.60-1.40 mg/dl Est Creatinine Clear Calc Drug Dose 67.2 ml/min Estimated GFR () 67.4 Estimated GFR (Non- 58.2 BUN/Creatinine Ratio 12.6 10-20 Random Glucose 174 70-99 mg/dl Calcium Level 9.2 8.5-10.1 mg/dl Total Creatine Kinase 85 39-308 U/L Creatine Kinase MB 2.6 0.5-3.6 ng/ml Creatine Kinase MB Ratio 3.1 0-3.0 Troponin I 0.015 0-0.045 ng/ml Bedside Troponin I 0.040 0-0.045 ng/ml Bedside Hemoglobin 17.0 14.0-18.0 g/dl Bedside Hematocrit 50 42-52 % Bedside Sodium 140 135-144 mEq/L Bedside Potassium 4.7 3.3-5.0 mEq/L Bedside Chloride 105 101-112 mEq/L Bedside Total CO2 24 24-31 mEq/l Bedside Blood Urea Nitrogen 23 7-18 mg/dl Bedside Creatinine 1.1 0.6-1.3 mg/dl Bedside Glucose (other) 151 70-99 mg/dl Bedside Ionized Calcium (Elvie) 1.14 1.12-1.32 mmol/l Kaolin Activated Coagulation Time 198 94-140 SECONDS Test 10/30/16 04:24 10/30/16 04:36 10/30/16 05:13 10/30/16 06:55 Range/Units Kaolin Activated Coagulation Time 188 301 281 94-140 SECONDS White Blood Count 16.13 4.8-10.8 K/uL Red Blood Count 4.84 4.7-6.1 M/uL Hemoglobin 15.1 14.0-18.0 g/dL Hematocrit 44.5 42-52 % Mean Corpuscular Volume 91.9 80-100 fL Mean Corpuscular Hemoglobin 31.2 25-34 pg Mean Corpuscular Hemoglobin Concent 33.9 32-36 g/dl Platelet Count 241 130-400 K/uL Mean Platelet Volume 11.0 7.4-10.4 fL RDW Standard Deviation 48.6 36.4-46.3 fL RDW Coefficient of Variation 14.3 11.5-14.5 % Neutrophils % (Manual) 87.0 % Lymphocytes % (Manual) 10.4 % Monocytes % (Manual) 2.6 % Neutrophils # (Manual) 14.03 1.4-6.5 K/uL Total Absolute Neutrophils 14.03 1.4-6.5 K/uL Lymphocytes # (Manual) 1.68 1.2-3.4 K/uL Total Absolute Lymphocytes 1.68 1.2-3.4 K/uL Monocytes # (Manual) 0.42 0.11-0.59 K/uL Red Blood Cell Morphology Unremarkable Sodium Level 141 136-145 mmol/L Potassium Level 3.5-5.1 mmol/L Chloride Level 107 98-107 mmol/L Carbon Dioxide Level 25 21-32 mmol/L Anion Gap 9.0 3-11 mmol/L Blood Urea Nitrogen 17 7-18 mg/dl Creatinine 1.10 0.60-1.40 mg/dl Est Creatinine Clear Calc Drug Dose 85.5 ml/min Estimated GFR () 90.2 Estimated GFR (Non- 77.9 BUN/Creatinine Ratio 15.7 10-20 Random Glucose 117 70-99 mg/dl Estimated Average Glucose 128 mg/dl Hemoglobin A1c 6.1 4.5-5.6 % Calcium Level 8.4 8.5-10.1 mg/dl Magnesium Level 1.8-2.4 mg/dl Total Bilirubin 0.4 0.2-1 mg/dl Aspartate Amino Transf (AST/SGOT) 15-37 U/L Alanine Aminotransferase (ALT/SGPT) 130 12-78 U/L Alkaline Phosphatase 107 45-117 U/L Total Creatine Kinase 39-308 U/L Creatine Kinase MB 366.5 0.5-3.6 ng/ml Creatine Kinase MB Ratio 0-3.0 Troponin I 130.000 0-0.045 ng/ml Total Protein 7.1 6.4-8.2 gm/dl Albumin 3.5 3.4-5.0 gm/dl Globulin 3.6 2.5-4.0 gm/dl Albumin/Globulin Ratio 1.0 0.9-2 Triglycerides Level 66 0-150 mg/dl Cholesterol Level 183 0-200 mg/dl HDL Cholesterol 37 mg/dl LDL Cholesterol Direct 135 mg/dl LDL Cholesterol, Calculated 133 mg/dl VLDL Cholesterol, Calculated 13 mg/dl Cholesterol/HDL Ratio 4.9 Thyroid Stimulating Hormone (TSH) 0.806 0.300-4.500 uIu/ml Test 10/30/16 08:12 Range/Units Microbiology Results 10/30/16 MRSA DNA Surveillance Screen, Received Pending Diagnostic Radiology [~ rep ct add3]] CHEST ONE VIEW PORTABLE HISTORY: Atypical Chest Pain COMPARISON: None. FINDINGS: The lungs are clear. Cardiac silhouette is top normal in size. No pleural effusions. No pneumothorax. IMPRESSION: No acute process. Electronically signed by: Jhon Vargas M.D. 10/30/2016 7:17 AM EKG repeat EKG this AM: A fib HR 107, ST elevations improving Impression Assessment and Plan 50 year old male with history of hypertension, chronic smoking presenting with chest pain. ST ELEVATION MYOCARDIAL INFARCTION S/P STENT PLACEMENT TO RCA AND LAD - BP stable, in A fib with mild tachycardia (management below) - continue Integrilin drip Aspirin, Plavix, Atorvastatin, Lisinopril, Metoprolol - discussed with Dr. Forrest ATRIAL FIBRILLATION - no history in the past - current on Integrilin and Metoprolol HYPERTENSION - BP stable today - continue Lisinopril and Metoprolol CHRONIC SMOKING - smoking cessation counselling PRE-DM a1c 6.1 new diagnosis DM diet Full Code DVT prophylaxis on Integrilin drip Disposition lives with family needs to establish with PCP ff up with Access Consult[facility] Dr. Forrest Advanced Directives Existing Living Will: No Existing Power of Social Worker Aide: No VTE Prophylaxis VTE Risk Assessment Done? Y/N: Yes Risk Level: Moderate
--- NOTE | 2016-10-30 08:46 | ECHOCARDIOGRAM REPORT ---
*NOTICE TO RECEIVING DEMOCRAT AGENCY This information is strictly Confidential and protected under [place] law. [place] law prohibits you from making any further disclosure of this information unless further disclosure is expressly permitted by the written consent of the person to whom it pertains or is authorized by law. A general authorization for the release of medical or other information is not sufficient for this purpose. Hospital accepts no responsibility if the information is made available to any other person, INCLUDING THE PATIENT. Interpretation Summary * Name: SHAZIA JUDD Study Date: 10/30/2016 07:15 AM BP: 138/85 mmHg * Patient Location: .MSICU\S\E104\S\1 HR: 87 * : 1965 (M/d/yyyy) Gender: Male Height: 71 in * Age: 50 yrs Ethnicity: CA Weight: 194 lb * Ordering Physician: Kory Forrest MD, [facility] * Performed By: Marva Matt * * Reason For Study: AMI * BSA: 2.1 m2 * -- Conclusions -- * There is moderate concentric left ventricular hypertrophy. * Left ventricular systolic function is normal. * There are regional wall motion abnormalities as specified. * Right ventricular systolic pressure is normal. * The right ventricular systolic function is reduced as assessed by tricuspid annular plane systolic excursion (TAPSE) (TAPSE <1.6 cm). Procedure Details * A complete two-dimensional transthoracic echocardiogram was performed (2D, M-mode, Doppler and color flow Doppler). * A contrast injection of Definity was performed to improve assessment of LV function. * Contrast was injected into an intravenous site in the left arm. * One vial of Definity ultrasound contrast was diluted in normal saline to a total volume of 10 ml. A total of '2' ml of solution was administered during imaging. * Lot # [id number] of Definity utilized for procedure. * Expiration date 10/31. * The attending nurse who injected the contrast agent was ADEN BRUCE RN. Left Ventricle * The left ventricle is normal in size. * There is moderate concentric left ventricular hypertrophy. * Ejection Fraction = 60-65%. * Left ventricular systolic function is normal. * There are regional wall motion abnormalities as specified. * The inferior and posterior lares are moderately hypokinetic. Portions of the septum are mildly hypokinetic Right Ventricle * The right ventricle is grossly normal size. * The right ventricular systolic function is reduced as assessed by tricuspid annular plane systolic excursion (TAPSE) (TAPSE <1.6 cm). Atria * The left atrial size is normal. * Right atrial size is normal. Mitral Valve * The mitral valve is grossly normal. * There is no mitral regurgitation noted. Tricuspid Valve * The tricuspid valve is not well visualized, but is grossly normal. * There is trace tricuspid regurgitation. * Right ventricular systolic pressure is normal. Aortic Valve * Aortic valve sclerosis mild, without significant aortic valvular stenosis. * No hemodynamically significant valvular aortic stenosis. * There is no significant aortic regurgitation. Pericardium/Pleural * There is no pericardial effusion. Great Vessels * Dilated inferior vena cava with reduced collapsability with sniff indicates an elevated right atrial pressure of 15 mmHg MMode 2D Measurements and Calculations IVSd 1.6 cm IVSs 2.4 cm LVIDd 3.5 cm LVIDs 2.3 cm LVPWd 1.7 cm LVPWs 2.3 cm IVS/LVPW 0.97 FS 33.6 % EDV(Teich) 51.4 ml ESV(Teich) 18.8 ml EF(Teich) 63.5 % EDV(cubed) 43.4 ml ESV(cubed) 12.7 ml EF(cubed) 70.8 % % IVS thick 49.7 % % LVPW thick 34.4 % LV mass(C)d 228.6 grams LV mass(C)dI 109.8 grams/m\S\2 LV mass(C)s 278.6 grams LV mass(C)sI 133.9 grams/m\S\2 SV(Teich) 32.6 ml SI(Teich) 15.7 ml/m\S\2 SV(cubed) 30.7 ml SI(cubed) 14.7 ml/m\S\2 ACS 1.4 cm asc Aorta Diam 2.7 cm LVOT diam 1.9 cm LVOT area 2.9 cm\S\2 LVAd ap4 28.1 cm\S\2 LVLd ap4 8.4 cm EDV(MOD-sp4) 77.0 ml EDV(sp4-el) 80.0 ml LVAs ap4 15.7 cm\S\2 LVLs ap4 6.6 cm ESV(MOD-sp4) 30.8 ml ESV(sp4-el) 31.7 ml EF(MOD-sp4) 60.0 % EF(sp4-el) 60.4 % LVAd ap2 24.3 cm\S\2 LVLd ap2 8.0 cm EDV(MOD-sp2) 61.5 ml EDV(sp2-el) 62.5 ml LVAs ap2 13.5 cm\S\2 LVLs ap2 7.0 cm ESV(MOD-sp2) 22.0 ml ESV(sp2-el) 22.2 ml EF(MOD-sp2) 64.2 % EF(sp2-el) 64.5 % LVLd %diff -4.80 % EDV(MOD-bp) 70.6 ml LVLs %diff 6.2 % ESV(MOD-bp) 26.2 ml EF(MOD-bp) 62.9 % SV(MOD-sp4) 46.2 ml SI(MOD-sp4) 22.2 ml/m\S\2 SV(MOD-sp2) 39.5 ml SI(MOD-sp2) 19.0 ml/m\S\2 SV(MOD-bp) 44.4 ml SI(MOD-bp) 21.3 ml/m\S\2 SV(sp4-el) 48.3 ml SI(sp4-el) 23.2 ml/m\S\2 SV(sp2-el) 40.3 ml SI(sp2-el) 19.4 ml/m\S\2 Doppler Measurements and Calculations MV E max rosemary 84.4 cm/sec MV dec time 0.15 sec Ao V2 max 95.9 cm/sec Ao max PG 3.7 mmHg Ao max PG (full) 0.36 mmHg MASOUD(V,A) 2.7 cm\S\2 MASOUD(V,D) 2.7 cm\S\2 LV V1 max PG 3.3 mmHg LV V1 max 91.0 cm/sec PA V2 max 56.1 cm/sec PA max PG 1.3 mmHg TR max rosemary 203.8 cm/sec
[2016-10-30] MEDS: SODIUM CHLORIDE 0.9% 1000ML 1,000 ML IV SCH ×3 (09:24→20:33)
[2016-10-30 09:31] LABS: POTASSIUM 4.4 mmol/L (3.5-5.1)
[2016-10-30 09:42] LABS: MAGNESIUM 1.9 mg/dl (1.8-2.4)
--- NOTE | 2016-10-30 11:21 | Procedure Note ---
Pre-Mod Sedation Assessment General Date of Moderate Sedation: Oct 30, 2016. Vital Signs: Vital Signs Past 12 Hours Date Time Temp Pulse Resp B/P Pulse Ox O2 Delivery O2 Flow Rate FiO2 10/30/16 08:30 114 12 96 10/30/16 08:00 113 14 105/87 92 Nasal Cannula 2.0 10/30/16 07:30 36.7 103 15 88 Room Air 10/30/16 07:30 93 Nasal Cannula 2.0 10/30/16 07:00 113 14 117/96 86 Room Air 10/30/16 06:36 36.5 103 18 120/102 93 Room Air 10/30/16 06:15 98 12 93 10/30/16 06:00 36.5 105 16 120/102 95 10/30/16 05:40 87 16 138/85 98 Nasal Cannula 2 10/30/16 05:30 85 16 132/87 98 Nasal Cannula 2 10/30/16 05:25 87 16 124/98 98 Nasal Cannula 2 10/30/16 03:00 86 20 116/92 Nasal Cannula 4.0 10/30/16 02:58 87 136/105 10/30/16 02:51 36.5 118 24 136/105 99 Room Air 10/30/16 02:50 108 10/30/16 02:48 Room Air Review Cardiovascular: no murmur, + tachycardia, + irregularly irregular Abdomen: non tender, soft Lungs: lungs clear Pre-Sedation Airway Assessment Able to Visualize Vocal Cords: No Short Thick Neck: No Hx of Sleep Apnea: No Smoking Status: Current Every Day Smoker Mallampati Classification: Class III Procedure Planning Contraindications-for Mod Sed: None Yes Notes The planned sedation has been discussed with the patient and consent obtained. I have identified the patient, determined the appropriateness of sedation and have assessed the patient immediately prior to the procedure. All medicine(s) and interventions are by my order.
--- NOTE | 2016-10-30 11:22 | Procedure Note ---
Post-Mod Sedation Assessment General Date of Moderate Sedation Oct 30, 2016. Vital Signs: Vital Signs Past 12 Hours Date Time Temp Pulse Resp B/P Pulse Ox O2 Delivery O2 Flow Rate FiO2 10/30/16 08:30 114 12 96 10/30/16 08:00 113 14 105/87 92 Nasal Cannula 2.0 10/30/16 07:30 36.7 103 15 88 Room Air 10/30/16 07:30 93 Nasal Cannula 2.0 10/30/16 07:00 113 14 117/96 86 Room Air 10/30/16 06:36 36.5 103 18 120/102 93 Room Air 10/30/16 06:15 98 12 93 10/30/16 06:00 36.5 105 16 120/102 95 10/30/16 05:40 87 16 138/85 98 Nasal Cannula 2 10/30/16 05:30 85 16 132/87 98 Nasal Cannula 2 10/30/16 05:25 87 16 124/98 98 Nasal Cannula 2 10/30/16 03:00 86 20 116/92 Nasal Cannula 4.0 10/30/16 02:58 87 136/105 10/30/16 02:51 36.5 118 24 136/105 99 Room Air 10/30/16 02:50 108 10/30/16 02:48 Room Air Review - Discharge Criteria Vital Signs Stable: Yes Alert/Oriented/Conversant: Yes Returned to Baseline Mental St: Yes Nausea Absent/Minimal: Yes Pain/Discomfort/Absent/Minimal: Yes Normal/Baseline Respirations: Yes Active Bleeding?: No Pt Received D/C Instructions: N/A Prescriptions Given: None Specific Proced. D/C Criteria Distal Pulses Present (Cardiac: Yes Groin site assessed-Card Cath: Yes Voided Prior To Discharge: N/A Discharged Patients Adult Escort/Transportation: N/A
--- NOTE | 2016-10-30 13:00 | CRITICAL CARE CONSULTATION ---
DATE OF CONSULTATION: 10/30/2016 CHIEF COMPLAINT: Chest pain. HISTORY OF PRESENT ILLNESS: The patient is a 50-year-old gentleman with a history of hypertension who has not seen a physician in quite some time. He presented to the Emergency Department with chest pain across the front of his chest and up into his neck. This occurred while he was sitting in front of the television and thinking about going to bed. He had diaphoresis, shortness of breath and felt like he had "a brain freeze." He said his mouth and lip as well as his chin felt funny. Specifically, he felt like he had a fat lip and also thought that he felt like he was dying. 911 was summoned and he was taken to the Emergency Department. In the Emergency Department, his EKG showed ST segment elevations in the inferior and lateral leads. He was taken to the cardiac catheterization lab and underwent PTCA and stenting x2 of the RCA. After the first stent there may have been dissection or coronary vasospasm and he received intracoronary nicardipine. A second stent was then placed. He had hypotension and bradycardia requiring dopamine and also may have developed a mid LAD thrombus. He had PTCA of the total occlusion of the mid LAD. His hypotension and bradycardia resolved, although he did have atrial fibrillation. He is presently in normal sinus rhythm. He denies chest pain when I interview him, he is feeling much better. He had been having short episodes of chest pain in the evenings about 5 minutes long for the week prior to last night's episode. He has not noted any dyspnea on exertion or chest pain with exertion. He has not seen a physician in many years and although he knows he has hypertension, has not taken any medication for it. PAST MEDICAL HISTORY: Hypertension. PAST SURGICAL HISTORY: Status post laparoscopic cholecystectomy. ALLERGIES: No known drug allergies. OUTPATIENT MEDICATIONS: None. 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 He has smoked since the age of 12 and has smoked a pack of cigarettes per day for years since around the age of 20. He quit drinking just over a year ago. FAMILY HISTORY: Significant for hypertension. REVIEW OF SYSTEMS: He denies fevers, chills, cough, abdominal pain, diarrhea, rash. He denies any history of diabetes, hyperlipidemia. He denies weight loss or weight gain. His appetite has been good. Additional review of systems is negative or noncontributory other than what is presented in the history of present illness. A 12-point review of systems was obtained. PHYSICAL EXAMINATION: VITAL SIGNS: Temperature 36.7, heart rate 95, respiratory rate 12, blood pressure 105/87, oxygen saturation 92% on 2 liters nasal cannula. HEENT: Pupils are round bilaterally. Oral mucosa is moist. Dentition is poor. NECK: No adenopathy, trachea midline. No thyromegaly. LUNGS: Clear to auscultation bilaterally with decreased breath sounds bilaterally as well. HEART: Regular rate and rhythm. No murmurs noted. ABDOMEN: Round, soft, nondistended, nontender. EXTREMITIES: Warm, 1+ dorsalis pedis and radial pulses. There is a right groin hematoma, which is soft. The 2 x 2 gauze overlying the area has a small amount of blood on it. NEUROLOGIC: He is awake, alert and oriented. He moves all 4 extremities. LABORATORY DATA: White blood cell count 16.13, hemoglobin 15.1, hematocrit 44.5, platelets 241. Sodium 141, potassium 4.4, chloride 107, CO2 of 25, BUN 17, creatinine 1.1. Blood sugar 117, calcium 8.4. Troponin 130. Cholesterol 183, triglycerides 66. TSH 0.806. CPK 3957, CK-MB 366.5, AST 45, ALT 130. Hemoglobin A1c 6.1. Portable chest x-ray was reviewed and shows no acute process. EKG pre and post-cardiac catheterization have been reviewed. PRESENT MEDICATIONS: Tylenol, Maalox, aspirin, Lipitor, Plavix, Integrilin, Xopenex, lisinopril, Ativan, milk of magnesia, Lopressor, morphine, Zofran, Zantac, normal saline 100 mL per hour. Echocardiogram report was reviewed and shows preserved ejection fraction and regional wall motion abnormalities, inferior and posterior lares are moderately hypokinetic. Portions of the septum are mildly hypokinetic. The right ventricle is grossly normal size. IMPRESSION: 1. Acute inferior wall myocardial infarction, status post RCA stents x2. 2. Coronary artery disease and total mid LAD occlusion, status post PTCA. 3. Hypotension and bradycardia during cardiac catheterization, resolved. 4. Atrial fibrillation, now in normal sinus rhythm. 5. Right groin hematoma. 6. Hypertension. 7. History of tobacco abuse. PLAN: 1. Continue Integrilin, Plavix, statin, beta-stephan and lisinopril. 2. Encourage smoking cessation. Provide nicotine patch if he needs it. 3. Watch the right groin carefully. 4. Continue to trend the troponins. 5. Replete electrolytes if needed. 6. Follow any further cardiology recommendations. 7. At discharge, he will certainly need referral to a primary care provider with encouragement to follow up on a regular basis. Thank you for asking me to see this patient. Please call me with any questions or concerns.
[2016-10-30 15:14] LABS: CKMB/CK RATIO 10.6 (0-3.0)
[2016-10-30 23:03] LABS: CKMB/CK RATIO 8.2 (0-3.0)
[2016-10-31] VITALS (9 sets, daily range): BP systolic 103–136; BP diastolic 65–94; PULSE 78–88; TEMP 36.7–37.5; O2SAT 93–96
[2016-10-31] MEDS: EPTIFIBATIDE INJ 75 MG PREMIXED IV SCH (03:57)
[2016-10-31 05:27] LABS: BASO % 0.3 %; BASO ABS # 0.03 K/uL (0-0.2); COMPLETE YES; EOS % 0.6 %; HEMATOCRIT 39.8 % (42-52); IG% 0.3 %; LYMPH ABS # 3.32 K/uL (1.2-3.4); MEAN CORPUSCULAR HEMOGLOBIN 31.5 pg (25-34); MEAN CORPUSCULAR HGB CONC 33.9 g/dl (32-36); MEAN PLATELET VOLUME 11.3 fL (7.4-10.4); MONO % 9.1 %; NEUT % 61.7 %; PLATELET COUNT 223 K/uL (130-400); RED BLOOD COUNT 4.28 M/uL (4.7-6.1); WHITE BLOOD COUNT 11.87 K/uL (4.8-10.8)
[2016-10-31 05:56] LABS: BUN/CREATININE RATIO 13.8 (10-20); CALCIUM 7.9 mg/dl (8.5-10.1); CREATININE 0.87 mg/dl (0.60-1.40); MAGNESIUM 1.8 mg/dl (1.8-2.4); POTASSIUM 4.3 mmol/L (3.5-5.1)
[2016-10-31] MEDS ORDERED: Integrelin infusion --> STOP ORDER ONE (07:00)
[2016-10-31] MEDS: LISINOPRIL 5 MG TAB PO SCH (09:00)
[2016-10-31] MEDS: DOCUSATE SODIUM 100 MG CAP PO SCH ×2 (09:00→19:57)
[2016-10-31] MEDS: CLOPIDOGREL BISULFATE 75 MG TAB PO SCH (09:00)
[2016-10-31] MEDS: METOPROLOL TARTRATE 25 MG TAB PO SCH (09:00)
[2016-10-31] MEDS ORDERED: DOCUSATE SODIUM 100 MG CAP PO SCH (09:00)
[2016-10-31] MEDS: ATORVASTATIN 40 MG TAB PO SCH (09:00)
[2016-10-31] MEDS: ASPIRIN 81 MG ECTAB PO SCH (09:00)
--- NOTE | 2016-10-31 10:16 | CRITICAL CARE PROGRESS NOTE ---
DATE: 10/31/2016 There were no acute events overnight. The patient's Integrilin was stopped early this morning. He denies chest pain, shortness of breath, and overall feels well. He told me "I am ready to run a mile." He is tolerating a clear liquid diet and his appetite is marginal. VITAL SIGNS: Maximum temperature 36.8, heart rate 70s-80s, respiratory rate 16-22, blood pressure 115-134/78-94, oxygen saturation 96%. 24-hour fluid balance positive 1.7 liters. PHYSICAL EXAMINATION: GENERAL: He is awake and alert and ambulating around the room a little bit. He is easily able to carry on a conversation regarding cessation of smoking. LUNGS: Clear to auscultation bilaterally. No rales, rhonchi or wheezes. HEART: Regular rate and rhythm, no murmur. ABDOMEN: Soft, nondistended. EXTREMITIES: No edema. The right groin is ecchymotic but less full compared to yesterday. LABORATORY DATA: Sodium 142, potassium 4.3, chloride 107, CO2 30, BUN 12, creatinine 0.87. Blood sugar 109, calcium 7.9, magnesium 1.8. Troponin peak at 169, this morning 95.8. White blood cell count 11.87, hemoglobin 13.5, hematocrit 39.8, platelets 223. MEDICATIONS: Acetaminophen, Maalox, aspirin, Lipitor, Plavix, Xopenex p.r.n., lisinopril, milk of magnesia, Lopressor, morphine, Zofran, Zantac. EKG from today and echo report reviewed. IMPRESSION: 1. Status post acute ST-segment elevation myocardial infarction, right coronary artery stent x2 and percutaneous transluminal coronary angioplasty of the left anterior descending artery. 2. Atrial fibrillation, resolved. 3. Right groin hematoma, stable. 4. Hypertension, improved. 5. History of tobacco abuse. 6. Leukocytosis, likely secondary to the myocardial infarction. No signs of infection. PLAN: 1. Continue Plavix, statin, beta stephan and lisinopril. His blood pressure has some room to increase either the beta stephan or lisinopril. His ejection fraction on echocardiogram is preserved. I will await any further cardiology recommendations regarding adjustment of those medicines. Continue aspirin. 2. Discontinue normal saline. 3. Advance diet and discontinue Zantac. 4. Cardiac rehab has been consulted. 5. I discussed smoking cessation with him briefly and his nurse, Jennifer, was also discussing strategies for quitting with him. 6. Case management is involved regarding his followup and his concerns regarding ability to pay for the hospitalization. 7. I reinforced the need for daily Plavix with him. 8. Colace was started today, 100 mg b.i.d. He is stable for transfer to telemetry. I discussed his care briefly with Dr. Guo. I will sign off at this time. Please call me with any questions or concerns. FLO
--- NOTE | 2016-10-31 13:25 | PROGRESS NOTE ---
DATE: 10/31/2016 SUBJECTIVE: The patient was seen by me today in his intensive care unit room. He states he is feeling very well. Since his emergency coronary intervention early yesterday morning, he has had no further complaints of chest pain. He denies any chest pain or other anginal type pains. No orthopnea or PND. No palpitations, lightheadedness, or syncope. Mild tenderness at his right femoral catheterization site. No bleeding complaints. No fevers or chills. No pulmonary, GI, or urinary complaints. No neurologic complaints. No vascular complaints. No unusual myalgias or muscle weakness. CURRENT MEDICATIONS: Docusate sodium 100 mg b.i.d., aspirin 81 mg daily, clopidogrel 75 mg daily, atorvastatin 80 mg daily, metoprolol tartrate 25 mg b.i.d., lisinopril 5 mg daily, lorazepam p.r.n., Zofran p.r.n., Tylenol p.r.n., morphine p.r.n., Xopenex p.r.n., milk of magnesia p.r.n., and Maalox p.r.n. ALLERGIES AND ADVERSE DRUG REACTIONS: None. PHYSICAL EXAMINATION: GENERAL: The patient is lying in his bed. No distress. NECK: No jugular venous distention. LUNGS: Normal respiratory effort. Slight decreased breath sounds at both bases. Improves with deep breathing. No rales or rhonchi. HEART: Regular rate and rhythm. S1 and S2 normal. No S3 or S4. No murmur or rub. ABDOMEN: Soft. Nontender. No palpable masses or organomegaly. No bruits. EXTREMITIES: Right femoral catheterization site with mild hematoma. Ecchymoses right groin. No bruit over the right femoral artery. Nontender. No active bleeding. PULSES: Distal pulses palpable. NEUROLOGICAL: Alert and oriented x3. Motor grossly intact. PSYCHIATRIC: Affect is normal. VITAL SIGNS: Today with oral temperature is 37, pulse 81, blood pressure 123/88, and pulse oximetry room air 96%. While the patient was being examined by me any he moved about his bed, his heart rate on the bedside monitor increased to 100. MONITOR HISTORY: The patient had been in atrial fibrillation when he left the cardiac catheterization laboratory yesterday morning. He converted to sinus rhythm a few hours after being admitted to the intensive care unit. Since then, he has maintained sinus rhythm. Occasional premature supraventricular beat and occasional premature ventricular beats. LABORATORY DATA: CBC this morning with WBC 11.87, hemoglobin 13.5, hematocrit 39.8, and platelet count 223. Metabolic profile -- sodium 142, potassium 4.3, chloride 107, carbon dioxide 30, BUN 12, creatinine 0.87, random glucose 109, and magnesium 1.8. Peak troponin I was at 01:56 p.m. yesterday afternoon. It was 169.000. This morning's troponin I is 95.800. The peak CK total was 3957 at 08:57 a.m. yesterday morning. Peak CK-MB was at 01:56 p.m., at which time it was 373.8. Lipid profile yesterday with triglycerides 66, total cholesterol 183, direct LDL 135, and HDL 37. TSH yesterday was 0.806. Electrocardiogram today with sinus rhythm with premature supraventricular beats. Evolving inferior ID. The ST segments in the precordial leads are normal. Echocardiogram performed yesterday morning revealed overall LV ejection fraction of approximately 60%. Inferior and posterior wall hypokinesis. Septal hypokinesis. Moderate LVH. Trace tricuspid regurgitation. No mitral regurgitation noted. No significant aortic valvular disease. No pericardial effusion. ASSESSMENT: 1. Presentation to the Emergency Department with an acute inferior myocardial infarction on electrocardiogram. He also had anterior ST segment elevations present. Emergency cardiac catheterization revealed a total ostial RCA occlusion. Subsequent successful intervention to the ostium of the RCA as well as to proximal RCA. A 3.0 x 18-mm Xience stent in the ostium of RCA and proximal RCA. A 2.75 x 23-mm Xience stent deployed distal to the first stent in an overlapping fashion. Residual stenosis 0-10%. Mild atherosclerotic disease in the mid and distal RCA. JASE-3 flow in the RCA following stent deployment. No residual thrombus evident. No perforation, dissection, or distal embolic event. 2. Left coronary angiography performed following RCA intervention. The patient had a total mid LAD occlusion. This was felt to be an acute thrombosis at the site of previously severe stenosis. Successful intervention to the LAD stenosis. Deployment of 2.25 x 18-mm Xience drug-eluting stent in mid LAD. JASE-3 flow into the apical LAD following stent deployment. Residual stenosis at the stent site 0-10%. The ostium of an LAD diagonal arising from just prior to the stent had a 75% ostial stenosis. Ostial 30%-50% left circumflex stenosis. Mid left circumflex with 30% stenosis. Marginal branch of the left circumflex with 30%-50% stenosis. 3. Severe hypotension complicating initial presentation. Improvement with normal saline, dopamine, and reperfusion of the RCA. At the completion of the procedure yesterday morning, the patient was off pressors. 4. Atrial fibrillation complicating initial presentation. Spontaneous conversion in the intensive care unit yesterday morning early after his admission. No further atrial fibrillation. Potassium and magnesium levels are normal. TSH normal. 5. No post-infarct angina or congestive heart failure. No significant ventricular arrhythmias. No further atrial fibrillation. 6. No evidence of any significant vascular complications. 7. Dyslipidemia. 8. Increased heart rate despite beta stephan therapy. PLAN: 1. Continue aspirin and clopidogrel. 2. Continue maximum dose of atorvastatin. 3. Continue lisinopril. 4. Increase metoprolol tartrate to 50 mg b.i.d. 5. Transfer to telemetry unit. Increase activity.
--- NOTE | 2016-10-31 15:21 | Progress Note ---
Medicine Progress Note Date & Time of Visit: Oct 31, 2016 at 15:04. Subjective Patient seen and examined. Denies chest pain and SOB. Asking when he can go home. States that he feels "great". Objective Last 8 Hrs Date Time Temp Pulse Resp B/P Pulse Ox O2 Delivery O2 Flow Rate FiO2 10/31/16 12:00 Room Air 10/31/16 12:00 37.0 84 14 115/76 96 Room Air 10/31/16 08:00 Room Air 10/31/16 08:00 37.0 81 18 123/88 96 Room Air 10/31/16 08:00 Room Air Physical Exam: General-awake; alert; NAD Eyes-EOMI; no scleral icterus Neck-no stridor; trachea midline Lungs-CTA bilaterally; no wheezes/crackles Heart-RRR; no m/r/g Abdomen-soft; NTND; nBS Extremities-no c/c/e; no deformity Neuro-no focal deficits Laboratory Results: Last 24 Hours Test 10/30/16 21:55 10/30/16 22:10 10/31/16 05:06 Total Creatine Kinase 2786 U/L Creatine Kinase MB 229.5 ng/ml Creatine Kinase MB Ratio 8.2 Troponin I 128.000 ng/ml 95.800 ng/ml Bedside Glucose 102 mg/dl White Blood Count 11.87 K/uL Red Blood Count 4.28 M/uL Hemoglobin 13.5 g/dL Hematocrit 39.8 % Mean Corpuscular Volume 93.0 fL Mean Corpuscular Hemoglobin 31.5 pg Mean Corpuscular Hemoglobin Concent 33.9 g/dl Platelet Count 223 K/uL Mean Platelet Volume 11.3 fL Neutrophils (%) (Auto) 61.7 % Lymphocytes (%) (Auto) 28.0 % Monocytes (%) (Auto) 9.1 % Eosinophils (%) (Auto) 0.6 % Basophils (%) (Auto) 0.3 % Neutrophils # (Auto) 7.34 K/uL Lymphocytes # (Auto) 3.32 K/uL Monocytes # (Auto) 1.08 K/uL Eosinophils # (Auto) 0.07 K/uL Basophils # (Auto) 0.03 K/uL RDW Standard Deviation 50.7 fL RDW Coefficient of Variation 14.9 % Immature Granulocyte % (Auto) 0.3 % Immature Granulocyte # (Auto) 0.03 K/uL Sodium Level 142 mmol/L Potassium Level 4.3 mmol/L Chloride Level 107 mmol/L Carbon Dioxide Level 30 mmol/L Anion Gap 5.0 mmol/L Blood Urea Nitrogen 12 mg/dl Creatinine 0.87 mg/dl Est Creatinine Clear Calc Drug Dose 108.1 ml/min Estimated GFR () 116.6 Estimated GFR (Non- 100.6 BUN/Creatinine Ratio 13.8 Random Glucose 109 mg/dl Calcium Level 7.9 mg/dl Magnesium Level 1.8 mg/dl Chemistry Specimen Hemolysis Assessment & Plan 50 year old male with history of hypertension, chronic smoking presented with chest pain. ST ELEVATION MYOCARDIAL INFARCTION S/P STENT PLACEMENT TO RCA AND LAD - continue Aspirin, Plavix, Atorvastatin, Lisinopril, Metoprolol - Cardiology consulted PAROXYSMAL ATRIAL FIBRILLATION - no history in the past - continue Metoprolol and Aspirin - TSH normal HYPERTENSION - BP stable - continue Lisinopril and Metoprolol CHRONIC SMOKING - smoking cessation counselling PRE-DM - a1c 6.1 - DM diet Full Code DVT prophylaxis with heparin sq. Anticipate discharge home. Consultants: Cardiology Procedures: TTE * There is moderate concentric left ventricular hypertrophy. * Left ventricular systolic function is normal. * There are regional wall motion abnormalities as specified. * Right ventricular systolic pressure is normal. * The right ventricular systolic function is reduced as assessed by tricuspid annular plane systolic excursion (TAPSE) (TAPSE <1.6 cm). [facility] Emergency cardiac catheterization revealed a total ostial RCA occlusion. Subsequent successful intervention to the ostium of the RCA as well as to proximal RCA. A 3.0 x 18-mm Xience stent in the ostium of RCA and proximal RCA. A 2.75 x 23-mm Xience stent deployed distal to the first stent in an overlapping fashion. Residual stenosis 0-10%. Mild atherosclerotic disease in the mid and distal RCA. JASE-3 flow in the RCA following stent deployment. No residual thrombus evident. No perforation, dissection, or distal embolic event. Left coronary angiography performed following RCA intervention. The patient had a total mid LAD occlusion. This was felt to be an acute thrombosis at the site of previously severe stenosis. Successful intervention to the LAD stenosis. Deployment of 2.25 x 18-mm Xience drug-eluting stent in mid LAD. JASE-3 flow into the apical LAD following stent deployment. Residual stenosis at the stent site 0-10%. The ostium of an LAD diagonal arising from just prior to the stent had a 75% ostial stenosis. Ostial 30%-50% left circumflex stenosis. Mid left circumflex with 30% stenosis. Marginal branch of the left circumflex with 30%-50% stenosis. Current Inpatient Medications: Current Inpatient Medications Medications (Trade) Dose Ordered Sig/Nicole Route Start Time Stop Time Status Last Admin Dose Admin Atropine Sulfate (Atropine Sulfate 0.1MG/Ml Inj) 0.5 mg ONE PRN IV 10/30/16 06:00 11/29/16 05:59 Ondansetron HCl (Zofran Inj) 4 mg Q6H PRN IV 10/30/16 06:00 11/29/16 05:59 Aspirin (Ecotrin Tab) 81 mg QAM PO 10/30/16 09:00 11/29/16 08:59 10/31/16 09:00 81 MG Clopidogrel Bisulfate (plAVix TAB) 75 mg QAM PO 10/30/16 09:00 11/29/16 08:59 10/31/16 09:00 75 MG Atorvastatin Calcium (Lipitor Tab) 80 mg QAM PO 10/30/16 09:00 11/29/16 08:59 10/31/16 09:00 80 MG Metoprolol Tartrate (Lopressor Tab) 25 mg Q12 PO 10/30/16 09:00 11/29/16 08:59 10/31/16 09:00 25 MG Lisinopril (Zestril Tab) 5 mg QAM PO 10/30/16 09:00 11/29/16 08:59 10/31/16 09:00 5 MG Acetaminophen (Tylenol Tab) 650 mg Q4H PRN PO 10/30/16 06:00 11/29/16 05:59 Morphine Sulfate (MoRPHine SULFATE INJ) 2 mg Q5M PRN IV 10/30/16 06:00 11/13/16 05:59 Levalbuterol (Xopenex 1.25MG/ 3ML Neb) 1.25 mg Q4 PRN INH 10/30/16 06:00 11/29/16 05:59 Al Hydrox/Mg Hydrox/Simethicone (Maalox Max Susp) 15 ml Q4H PRN PO 10/30/16 06:00 11/29/16 05:59 Magnesium Hydroxide (Milk Of Magnesia Susp) 30 ml Q12H PRN PO 10/30/16 06:00 11/29/16 05:59 Lorazepam (Ativan Inj) 0.5 mg Q6H PRN IV 10/30/16 06:30 11/29/16 06:29 Docusate Sodium (coLACE CAP) 100 mg BID PO 10/31/16 09:00 11/30/16 08:59 10/31/16 09:00 100 MG
[2016-10-31] MEDS: METOPROLOL TARTRATE 50 MG TAB PO SCH (19:57)
[2016-10-31] MEDS: HEPARIN SOD 5000 UNIT/0.5 ML CARP SQ SCH (20:05)
[2016-11-01 03:42] VITALS: BP 108/70; PULSE 82; TEMP 37.2; O2SAT 97
[2016-11-01] MEDS: HEPARIN SOD 5000 UNIT/0.5 ML CARP SQ SCH (05:57)
[2016-11-01 06:28] LABS: HEMATOCRIT 39.9 % (42-52); MEAN CELL VOLUME 94.8 fL (80-100); MEAN CORPUSCULAR HEMOGLOBIN 30.6 pg (25-34); MEAN CORPUSCULAR HGB CONC 32.3 g/dl (32-36); MEAN PLATELET VOLUME 10.8 fL (7.4-10.4); PLATELET COUNT 216 K/uL (130-400); RED BLOOD COUNT 4.21 M/uL (4.7-6.1); WHITE BLOOD COUNT 11.72 K/uL (4.8-10.8)
[2016-11-01 07:35] LABS: BUN/CREATININE RATIO 12.1 (10-20); CALCIUM 8.4 mg/dl (8.5-10.1); CREATININE 0.86 mg/dl (0.60-1.40)
[2016-11-01 09:06] VITALS: BP 129/68; PULSE 76; TEMP 36.8; O2SAT 99
[2016-11-01] MEDS ORDERED: PLV75 PO (09:11)
[2016-11-01] MEDS ORDERED: ASPEC81 PO (09:11)
[2016-11-01] MEDS ORDERED: LPT40 PO (09:11)
[2016-11-01] MEDS ORDERED: LSN5 PO (09:11)
[2016-11-01] MEDS ORDERED: METO50TA17 PO (09:11)
--- NOTE | 2016-11-01 09:23 | Discharge Instructions ---
Discharge Instructions Date of Service Nov 01, 2016. 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 Please wait to return to full duty work until seen by a doctor for hospital follow up. . Instructions / Follow-Up Instructions / Follow-Up Contact information for the three low cost clinics in [facility]: -[facility] in [place] [phone] -[facility] in [place] [phone] -[facility] in [place] [phone] Please contact the [facility] physician group to schedule follow up with Cardiology. [phone] Current Hospital Diet Patient's current hospital diet: AHA Diet (Heart Healthy) Discharge Diet Recommended Diet: AHA Diet (Heart Healthy) Procedures Procedures Performed: Left heart catheterization with percutaneous intervention Pending Studies Studies pending at discharge: no Laboratory Results Hemoglobin A1c Test 10/30/16 06:55 Range/Units Estimated Average Glucose 128 mg/dl Hemoglobin A1c 6.1 H 4.5-5.6 % Lipid Panel Test 10/30/16 06:55 Range/Units Triglycerides Level 66 0-150 mg/dl Cholesterol Level 183 0-200 mg/dl HDL Cholesterol 37 mg/dl LDL Cholesterol Direct 135 mg/dl Cholesterol/HDL Ratio 4.9 LDL Cholesterol, Calculated 133 mg/dl Medical Emergencies . Who to Call and When: Medical Emergencies: If at any time you feel your situation is an emergency, please call 911 immediately. . Non-Emergent Contact Non-Emergency issues call your: Primary Care Provider . . "Provider Documentation" section prepared by Ceci Acosta. . VTE Core Measure Inpt VTE Proph given/why not?: Unfractionated heparin SQ
[2016-11-01] MEDS: LISINOPRIL 5 MG TAB PO SCH (09:24)
[2016-11-01] MEDS: CLOPIDOGREL BISULFATE 75 MG TAB PO SCH (09:24)
[2016-11-01] MEDS: ASPIRIN 81 MG ECTAB PO SCH (09:24)
[2016-11-01] MEDS: ATORVASTATIN 40 MG TAB PO SCH (09:24)
[2016-11-01] MEDS: DOCUSATE SODIUM 100 MG CAP PO SCH (09:24)
[2016-11-01] MEDS: METOPROLOL TARTRATE 50 MG TAB PO SCH (09:25)
[2016-11-01 09:49] VITALS: BP 129/68; PULSE 76; TEMP 36.8; O2SAT 99
[2016-11-01] MEDS ORDERED: METOPROLOL SUCC 50MG EXT REL TAB PO ONE (10:30)
--- NOTE | 2016-11-01 17:08 | Discharge Summary ---
Discharge Summary Date of Service Nov 01, 2016. Discharge Summary Admission Date: Oct 30, 2016 at 06:11 Discharge Date: Nov 01, 2016 Discharge Disposition: Home Principal Diagnosis: STEMI s/p PCI Procedures: TTE * There is moderate concentric left ventricular hypertrophy. * Left ventricular systolic function is normal. * There are regional wall motion abnormalities as specified. * Right ventricular systolic pressure is normal. * The right ventricular systolic function is reduced as assessed by tricuspid annular plane systolic excursion (TAPSE) (TAPSE <1.6 cm). [facility] Emergency cardiac catheterization revealed a total ostial RCA occlusion. Subsequent successful intervention to the ostium of the RCA as well as to proximal RCA. A 3.0 x 18-mm Xience stent in the ostium of RCA and proximal RCA. A 2.75 x 23-mm Xience stent deployed distal to the first stent in an overlapping fashion. Residual stenosis 0-10%. Mild atherosclerotic disease in the mid and distal RCA. JASE-3 flow in the RCA following stent deployment. No residual thrombus evident. No perforation, dissection, or distal embolic event. Left coronary angiography performed following RCA intervention. The patient had a total mid LAD occlusion. This was felt to be an acute thrombosis at the site of previously severe stenosis. Successful intervention to the LAD stenosis. Deployment of 2.25 x 18-mm Xience drug-eluting stent in mid LAD. JASE-3 flow into the apical LAD following stent deployment. Residual stenosis at the stent site 0-10%. The ostium of an LAD diagonal arising from just prior to the stent had a 75% ostial stenosis. Ostial 30%-50% left circumflex stenosis. Mid left circumflex with 30% stenosis. Marginal branch of the left circumflex with 30%-50% stenosis. Consultations: Cardiology Medication Reconciliation New Medications: Aspirin (Aspirin EC Low Dose) 81 Mg Ectab 81 MG PO QAM for 30 Days, #30 TAB Atorvastatin (Atorvastatin Calcium) 40 Mg Tab 80 MG PO QAM for 30 Days, #60 TAB Clopidogrel Bisulfate (Clopidogrel) 75 Mg Tab 75 MG PO QAM for 30 Days, #30 TAB Lisinopril (Lisinopril) 5 Mg Tab 5 MG PO QAM for 30 Days, #30 TAB Metoprolol Tartrate (Metoprolol Tartrate) 50 Mg Tab 50 MG PO Q12 for 30 Days, #60 TAB Admission Information HPI (per Admitting provider): 50 year old male with history of hypertension, chronic smoking presenting with chest pain. Patient was in his usual state of health until a week ago when he started to have intermittent chest pain, radiating to the neck with exertion. Last evening, before going to bed, patient experienced nausea, diaphoresis followed by severe left sided chest pain radiating to his neck. 911 was summoned and patient was brought to the ER. On arrival, BP was 136/105, HR 108. EKG showed Afib with ST elevations in the inferior and anterolateral leads. Initial troponin 0.015. Patient then underwent emergent Cardiac Catheterization and had stents placed on the RCA and LAD. He was then transferred to the ICU. On exam, patient was in a fib with HR low 100s, BP stable. He is comfortable, pleasant, states chest pain is just mild, no nausea/dyspnea/ palpitations/dizziness. Denies groin pain. Physical Exam (per Admitting): General Appearance: WD/WN, no apparent distress Head: normocephalic, atraumatic Eyes: normal inspection, EOMI, sclerae normal ENT: normal ENT inspection, hearing grossly normal, pharynx normal Neck: supple, no adenopathy, thyroid normal, no JVD, trachea midline Respiratory/Chest: chest non-tender, lungs clear, normal breath sounds, no respiratory distress, no accessory muscle use Cardiovascular: no edema, no JVD, no murmur, + tachycardia, + irregularly irregular Abdomen/GI: normal bowel sounds, non tender, soft, no organomegaly Back: normal inspection, no CVA tenderness Extremities/Musculoskelatal: normal inspection, no calf tenderness, normal capillary refill, no pedal edema Neurologic/Psych: medical driver II-XII nml as tested, no motor/sensory deficits, alert , normal mood/affect, normal reflexes, oriented x 3 Skin: normal color, warm/dry, no rash Lymphatic: no adenopathy Hospital Course 50 year old male with history of hypertension, chronic smoking presented with chest pain and found to have STEMI. Cardiology was consulted. Patient was taken to the foundry laborer coreroom and had stents placed (see cath report). Patient was started on Aspirin, Plavix, Atorvastatin, Lisinopril, Metoprolol. Post cath course was complicated with an episode of paroxysmal atrial fibrillation. Patient remained chest pain free post procedure. 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 Patient deemed stable for discharge and was given information for low cost clinic follow up in the [place] area as well as the [facility] physician group for Cardiology. PE on discharge: General- awake; alert; NAD Eyes- EOMI; no scleral icterus Neck- no stridor; trachea midline Lungs- CTA bilaterally; no wheezes/crackles Heart- RRR; no m/r/g Abdomen- soft; NTND; nBS Back- no gross abnormalities Extremities- no c/c/e; no deformity Neuro- no focal deficits Skin- large bruise in area of right groin . Total time spent on discharge = This includes examination of the patient, discharge planning, medication reconciliation, and communication with other providers. Discharge Instructions Discharge Instructions Date of Service Nov 01, 2016. 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 Please wait to return to full duty work until seen by a doctor for hospital follow up. . Instructions / Follow-Up Instructions / Follow-Up Contact information for the three low cost clinics in [facility]: -[facility] in [place] [phone] -[facility] in [place] [phone] -[facility] in [place] [phone] Please contact the [facility] physician group to schedule follow up with Cardiology. [phone] Current Hospital Diet Patient's current hospital diet: AHA Diet (Heart Healthy) Discharge Diet Recommended Diet: AHA Diet (Heart Healthy) Procedures Procedures Performed: Left heart catheterization with percutaneous intervention Pending Studies Studies pending at discharge: no Laboratory Results Hemoglobin A1c Test 10/30/16 06:55 Range/Units Estimated Average Glucose 128 mg/dl Hemoglobin A1c 6.1 H 4.5-5.6 % Lipid Panel Test 10/30/16 06:55 Range/Units Triglycerides Level 66 0-150 mg/dl Cholesterol Level 183 0-200 mg/dl HDL Cholesterol 37 mg/dl LDL Cholesterol Direct 135 mg/dl Cholesterol/HDL Ratio 4.9 LDL Cholesterol, Calculated 133 mg/dl Medical Emergencies . Who to Call and When: Medical Emergencies: If at any time you feel your situation is an emergency, please call 911 immediately. . Non-Emergent Contact Non-Emergency issues call your: Primary Care Provider
[2016-11-02] MEDS ORDERED: METOPROLOL SUCC 50MG EXT REL TAB PO SCH (09:00)
--- NOTE | 2016-11-14 18:43 | Cardiac Catheterization ---
Procedure Note Procedure Date October 30, 2016. 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 Forrest Carpenter Inspector(s) Toshia Purdy,RTR Estimated Blood Loss 60 Medication(s) Atropine, Clopidogrel, Dopamine, Fentanyl, Heparin, Integrilin, Nicardipine ( Intra-arterial and intracoronary), Versed, Lidocaine 1% Intravenous Zofran Summary of Findings Clinical indications: Acute inferior and anterolateral myocardial infarction on electrocardiogram. Catheterization site: 6 Cam[place]onian sheath right femoral artery. Equipment: 6 [place] JR4 0.0 guide catheter,[place] guidewire, Medtronic Sprinter 2.5 x 12 millimeter balloon dilatation catheter, Rider Xience 3 x 18 millimeter drug-eluting stent, Rider Xience 2.75 x 23 millimeter drug-eluting stent, Rider NC Trek 3.5 x 12 millimeter balloon dilatation catheter, 6 [place] JL4 diagnostic catheter, 6 [place] EBU 3.75 guide catheter, Medtronic Sprinter 2 x 15 millimeter balloon dilatation catheter, Rider Xience 2.25 x 18 millimeter drug-eluting stent, 6 [place]onian pigtail catheter. Protocol and findings: The right radial pulse was not palpable. The right femoral pulse was weakly palpable. A 6 [place] sheath was then inserted percutaneously into the right femoral artery. Intravenous Zofran was given for nausea. Intravenous dopamine was started because of hypotension. Based on the electrocardiogram it was felt that the patient was sustaining primarily an inferior myocardial infarction with lateral involvement. Right coronary angiography was performed with the JR4 guide catheter. Intravenous heparin and Integrilin were administered. Therapeutic activated clotting time subsequently documented. Because of nausea he was given intravenous Zofran. Because of the hypotension he was started on intravenous dopamine. Intravenous atropine was administered because of bradycardia. Right coronary angiography revealed a total ostial RCA occlusion. With manipulation of the catheter the catheter tip advanced past the site of the initial occlusion. The right coronary artery was then visualized. On repeat angiography there was again a total ostial occlusion.The guidewire was easily passed into the distal RCA. Total 7 balloon inflations were performed with the sprinter 2.5 x 12 millimeter balloon to the ostium and proximal segment of the RCA. Maximum pressure 14 atmospheres and maximum duration of 20 seconds. There remained a severe ostial stenosis of the RCA. JASE 3 flow was established into the RCA. The patient's chest pain improved. His blood pressure improved and the dopamine dose was decreased. The dopamine was ultimately able to be completely discontinued. The 3 x 18 millimeter Xience stent was then deployed in the ostium of the RCA into the proximal RCA. The proximal stent was slightly outside of the ostium. The stent was deployed at 18 atmospheres for duration of 45 seconds. Following this stent deployment there. To be a dissection just distal stent. Associated spasm was also present. Following administration of intracoronary nicardipine the spasm improved. There still appeared to be residual dissection. A Xience 2.75 x 23 millimeter stent was then deployed distal to the 1st stent in an overlapping fashion. It was deployed at a pressure of 18 atmospheres for duration of 45 seconds. The overlap site of the stents was post dilated with the stent delivery balloon to a pressure of 20 atmospheres for duration of 15 seconds. The ostium of the RCA and the proximal RCA stents were then post dilated with the 3.5 x 12 millimeter NC trek balloon. A total of 5 inflations were performed to a maximum pressure of 20 seconds and maximum duration of 15 seconds. His chest pain had markedly decreased. Follow-up angiography was then performed of the RCA. There was a residual 30 percent stenosis in the early mid RCA just distal to the stented region. JASE 3 flow into the distal RCA and its branches. No evidence of dissection, thrombus, perforation, or distal embolic event. Left coronary angiography was then performed using the JL4 diagnostic catheter. On the initial left coronary angiogram a total mid LAD occlusion was present. He had then developed recurrence of severe chest pain. He also had development of marked ST segment elevations on the monitored leads. 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 The diagnostic catheter was then exchanged for the EBU 3.75 guide catheter. A guidewire was placed into the distal LAD. A total of 5 inflations were then performed with the sprinter 2.5 x 12 millimeter balloon to a maximum pressure of 8 atmospheres and maximum duration of 12 seconds. There remained a severe mid LAD stenosis. The 2.5 by 12 millimeter balloon would not advance across this stenosis. The balloon was exchanged for the 2.0 x 15 millimeter Sprinter balloon. Three inflations with this balloon were performed in the mid LAD at a pressure of 8 atmospheres for duration of 15 seconds. There was evidence of extensive thrombus in the mid LAD involving a third LAD diagonal. There was a severe stenosis just distal to the 3rd diagonal. Intracoronary nicardipine was administered. There was improvement in the appearance of the mid LAD. A Xience 2.25 x 18 millimeter stent was then deployed in the mid LAD at a pressure of 14 atmospheres for duration of 45 seconds. The proximal segment of the stent was positioned just distal to the origin of the 3rd diagonal. Following the stent deployment the residual stenosis in the mid LAD was 0-10 percent. Just prior to the stent there was a 30 percent stenosis. There was no evidence of any residual thrombus. No evidence of dissection, perforation, or distal embolic event. JASE 3 flow in the LAD and its diagonal branch. There was residual ostial 75 percent 3rd diagonal stenosis. The ostium of the left circumflex had a 30-50 percent stenosis. The mid circumflex had a 30 percent stenosis. The mid circumflex gave rise to a bifurcating small to medium caliber marginal artery. The inferior branch had a 30 percent proximal stenosis. Left ventricular angiography was then performed from the 30 degree right anterior oblique projection. Theposterior basal and anterior basal segments contracted normally. The anterolateral segment contracted normally. The diaphragmatic and apical segments were hypokinetic. No mitral regurgitation noted. LV ejection fraction 50 percent. Femoral artery angiography revealed sheath to be present in the lower right common femoral artery. The common femoral artery had no obstructive disease. The right superficial femoral artery and the external iliac artery had no obstructive disease. The profunda artery had a 20 percent proximal stenosis. Hemostasis was obtained at the right femoral artery sheath site with deployment of a 6 Cam[place]onian StarClose vascular closure system. At the completion of the procedure there is no evidence of bleeding or hematoma at the right femoral catheterization site. His blood pressure was stable off of dopamine. His rhythm remained atrial fibrillation with a controlled ventricular response. His chest pain had almost completely resolved. The ST segments on his monitor leads had markedly improved. At the completion of procedure he was given 600 milligrams of oral clopidogrel. Hemodynamics Rest Ao: 66/45/52 mm Hg Final Ao: 112/81/95 mm Hg LV: 102/24 mm Hg Recommendations Medical therapy and/or Counseling, PCI without planned CABG Specimens None Radiation Exposure (mGy) 6240 Contrast (mls) 450 ml Visipaque Fluids (cc crystalloids) 526 ml Drains none Anesthesia IV versed,fentanyl. Lidocaine 1% local. Procedural Complication(s) None Disposition ICU ACC Data Cardiac Status Clinical evaluation leading to the procedure CAD Presntation: STEMI STEMI or Non-STEMI: Thrombolytics: No Anginal Classification: CCS IV Heart Failure: No Cardiogenic Shock w/in 24Hrs: Yes Cardiac Arrest w/in 24Hrs: No Imaging studies past 6 months: No Stress studies past 6 months: No Standard Exercise Stress Test: No Stress Echocardiogram: No Stress Testing w/SPECT MPI: No Cardiac CTA: No Coronary Anatomy Dominant: Right Left Main (% Stenosis): Mid (100), Normal LAD (% Stenosis): Ostial (20) D1 (% Stenosis): Normal D2 (% Stenosis): Normal D3 (% Stenosis): Ostial (75) Circumflex (% Stenosis): Ostial (30-50), Mid (30) OM1 (% Stenosis): Mid (30) RCA (% Stenosis): Ostial (100), Mid (30), Distal (20-30,20-30) R PDA (% Stenosis): Normal R PL1 (% Stenosis): Ostial (20), Mid (20) Left Ventricular Angiography EF (%): 50 Wall Motion: Inferior (Hypokinetic), Apical (Hypokinetic), Anterior (Normal) Mitral Regurgitation: None Diagnostic Physician's Name: Kory Forrest M.D. Status: Emergency Closure Device Percutaneous Entry Location: Femoral Closure Device: StarClose Recommendations: Medical therapy and/or Counseling, PCI without planned CABG PCI Indication: Immediate PCI for STEMI Lesion Segment Name: Ostial and proximal RCA Culprit Artery: Yes Stenosis Prior to Rx (%): 100 Chronic Total Occlusion: No IVUS: No FFR: No Pre-Procedure JASE Flow: 0 Previously Treated Lesion: No Lesion Complexity: Non-High/Non-C Lesion Length (mm): 15 Thrombus Present: Yes Bifurcation Lesion: No Guidewire Across Lesion: Yes Guidewire: Stenosis Post-Procedure (%): 0 Post-Procedure JASE Flow: 3 Device(s) Deployed: Yes (Xience 3 X 18 mm SAMMI ostium of RCA into prox RCA. Xience 2.75 23 mm SAMMI overlapping with first stent to cover a dissection. Ostium and proximal stented region post dilated with 3.5 X 12 mm NC balloon.) Lesion #2 Segment Name: Mid LAD Culprit Artery: Yes Stenosis Prior to Rx (%): 100 Chronic Total Occlusion: No IVUS: No FFR: No Pre-Procedure JASE Flow: 0 Previously Treated Lesion: No Lesion Complexity: Non-High/Non-C Lesion Length (mm): 15 Thrombus Present: Yes Bifurcation Lesion: No Guidewire Across Lesion: Yes Guidewire: Stenosis Post-Procedure (%): 0 Post-Procedure JASE Flow: 3 Device(s) Deployed: Yes Type of Device(s): Rider Xience 2.25 X 18 mm SAMMI Intraprocedure Events Significant Dissection: No Perforation: No
== END 2016-11-01 11:55 | disposition home or self-care (01) | DRG 247 ==
LOC: C.EDB 02:46 → C.MSICU 06:11 → C.2T 10-31 17:46
PROVIDERS: ADMIT Internal Medicine Cardiovascular Disease; ATTEND Internal Medicine Cardiovascular Disease
PROC: 3E033PZ Introduction of Platelet Inhibitor into Peripheral Vein, Percutaneous Approach (ICD-10-PCS; principal; 2016-10-30 02:51)
PROC: 027134Z Dilation of Coronary Artery, Two Arteries with Drug-eluting Intraluminal Device, Percutaneous Approach (ICD-10-PCS; principal; 2016-10-30 02:51)
PROC: B41F1ZZ Fluoroscopy of Right Lower Extremity Arteries using Low Osmolar Contrast (ICD-10-PCS; principal; 2016-10-30 02:51)
PROC: B2151ZZ Fluoroscopy of Left Heart using Low Osmolar Contrast (ICD-10-PCS; principal; 2016-10-30 02:51)
PROC: 4A023N7 Measurement of Cardiac Sampling and Pressure, Left Heart, Percutaneous Approach (ICD-10-PCS; principal; 2016-10-30 02:51)
DX: I21.19 ST elevation (STEMI) myocardial infarction involving other coronary artery of inferior wall (principal); I25.10 Atherosclerotic heart disease of native coronary artery without angina pectoris; I48.0 Paroxysmal atrial fibrillation; I10 Essential (primary) hypertension; F17.210 Nicotine dependence, cigarettes, uncomplicated; I95.89 Other hypotension; I25.2 Old myocardial infarction

== ENCOUNTER → 2017-01-24 | Outpatient (CLI) | payer OTHER ==
[~2017-01-24] MED LIST changes: -AMT10 PO; +ASPEC81 PO; +LPT40 PO; +LSN5 PO; +METO50TA17 PO; +PLV75 PO
[2017-01-24 18:02] LABS: CHOLESTEROL/HDL RATIO 4.1
== END | disposition home or self-care (01) ==
LOC: C.LAB1850 16:24
PROVIDERS: ATTEND Physician Assistant
DX: I10 Essential (primary) hypertension (principal); I21.3 ST elevation (STEMI) myocardial infarction of unspecified site; E78.5 Hyperlipidemia, unspecified

== ENCOUNTER 2018-10-17 10:22 | Observation (INO) ==
--- NOTE | 2018-10-17 11:07 | XRay Report ---
SINGLE VIEW CHEST CLINICAL HISTORY: Atypical chest pain. FINDINGS: An AP, portable, upright chest radiograph is compared to study dated 10/30/2016 and correlat ed with chest CT dated 03/21/2018. The examination is degraded by portable technique and patient rotati on. The heart is top normal for projection, and there is mild atherosclerotic calcification of the t horacic aorta. The lungs and pleural spaces are clear. No pneumothorax is seen. The bony thorax is gr ossly intact. IMPRESSION: No acute cardiopulmonary abnormality. Electronically signed by: Maury Kiran M.D. 10/17/2018 11:05 AM
[2018-10-17] MEDS ORDERED: MIDAZOLAM HCL 1 MG/ML 2ML VIAL ONE (11:25)
[2018-10-17] MEDS ORDERED: HEPARIN (PORCINE) 1000 UNIT/ML 10 ML (CATH LAB USE ONLY) ONE (11:26)
[2018-10-17] MEDS ORDERED: NiCARDipine HCL INJ 2.5 MG/ML 10 ML AMP ONE (11:26)
[2018-10-17] MEDS ORDERED: NITROGLYCERIN/D5W 100MCG/ML 20ML SYR ONE (11:26)
[2018-10-17] MEDS ORDERED: fentaNYL citrate 100 MCG/2 ML VIAL ONE (11:26)
[2018-10-17 11:27] LABS: Basophils # (auto) 0.02 K/uL (0-0.2); Basophils % (auto) 0.3 %; Eosinophils # (auto) 0.14 K/uL (0-0.5); Eosinophils % (auto) 1.8 %; Hematocrit (blood only) 42.2 % (42-52); Hemoglobin 14.3 g/dL (14.0-18.0); Immature Granulocytes # (auto) 0.01 K/uL (0.00-0.02); Immature Granulocytes % (auto) 0.1 %; Lymphocytes # (auto) 2.44 K/uL (1.2-3.4); Lymphocytes % (auto) 31.3 %; Mean Corpuscular Hgb Conc 33.9 g/dL (32-36); Mean Corpuscular Volume 92.5 fL (80-100); Mean Platelet Volume 11.4 fL (7.4-10.4); Monocytes # (auto) 0.91 K/uL (0.11-0.59); Monocytes % (auto) 11.7 %; Neutrophils # (auto) 4.28 K/uL (1.4-6.5); Neutrophils % (auto) 54.8 %; Platelet Count 223 K/uL (130-400); RDW Coefficient of Variation 14.1 % (11.5-14.5); RDW Standard Deviation 47.4 fL (36.4-46.3); Red Blood Count 4.56 M/uL (4.7-6.1)
[2018-10-17 11:43] LABS: Albumin Level 3.7 gm/dl (3.4-5.0); BUN Creatinine Ratio 19.1 (10-20); Calcium 8.6 mg/dl (8.5-10.1); Creatinine Clr Calc Pharmacy 124.8 ml/min; Est GFR (Non-African American) 99.2; Potassium 4.4 mmol/L (3.5-5.1)
[2018-10-17 11:46] LABS: Albumin Globulin Ratio 1.1 (0.9-2); Bilirubin,Total 0.4 mg/dl (0.2-1); Globulin 3.3 gm/dl (2.5-4.0)
[2018-10-17] MEDS ORDERED: CLOPIDOGREL BISULFATE 300 MG TAB ONE (12:41)
--- NOTE | 2018-10-17 12:44 | Post Anesthesia Assessment ---
Date of Service October 17, 2018 Post Sedation Assessment Vital Signs Temp Pulse Resp BP Pulse Ox 10/17/18 10:32 37.1 C 66 20 142/97 H 97 Recovery Score Activity: Moves 4 extremities Respiration: Deep Breath/Cough Circulation: +/-20% PreAnes Value Consciousness: Fully Awake Oxygen Saturation: O2 needed for >90% Discharge Sedation Level of Care: Fast Track Phase II Post Sedation Plan On clinical assessment, the patient appears to have tolerated the sedation without complications. Patient is recovering as anticipated. Patient will continue to be monitored by nursing and may be discharged when sedation discharge criteria are met per below protocol. Upon Completions of procedure and additional 15 minutes continue every 5 minute vital signs and the P.A.R. score; then discharge to a Phase I or Fast Track to Phase II per the following guidelines: * Discharge Patient to appropriate Phase II area if PAR is 8 or greater or return to pre- procedure baseline. The post - procedure orders will be as directed. * If PAR score is less than 8 or not return to pre-procedure baseline then patient will follow Phase I monitoring till PAR is reached for Phase II. The Phase I may be done in procedure room or may call to secure a Phase I area. * If naloxone or flumazenil are used for reversal, hold in Phase I for continued monitoring from when last reversal dose was given for a minimum of 60 minutes or longer pending the nurse and/or physician discretion of patient condition before discharge to Phase II. Please call the Sedation Physician to re-evaluate and complete post-note for discharge to Phase II area. Do NOT discharge from procedure sedation or Phase 1 until post- sedation evaluation note is complete by procedure /sedation MD Sedation Discharge Instructions to be given to the patient at discharge to home.
--- NOTE | 2018-10-17 12:44 | Pre Anesthesia Assessment ---
Date of Service October 17, 2018 Pre Sedation Assessment Vital Signs Temp Pulse Resp BP Pulse Ox 10/17/18 10:32 37.1 C 66 20 142/97 H 97 Cardiovascular RRR, no murmur, no edema Respiratory normal respiratory effort, lungs clear to auscultation Pre-Sedation Airway Assessment Smoking Status: Former smoker Hx Sleep Apnea: No Hx Difficult Intubation: No Short, Thick Neck: No Thyromental Distance: > or= 3.5 Finger Breadths Oral Cavity: + WNL Mallampati Class: III Procedure Planning Contraindications for Sedation: none Current Medications Reviewed: Yes Notes The planned sedation has been discussed with the patient. Informed Consent was obtained. I have identified the patient, determined the appropriateness of sedation and have assessed the patient immediately prior to the procedure. All medicine(s) and interventions are by my order.
[2018-10-17] MEDS ORDERED: ACETAMINOPHEN 325 MG TAB PO PRN (12:59)
[2018-10-17] MEDS ORDERED: ONDANSETRON INJ 2 MG/ML 2 ML VIAL IV PRN (12:59)
--- NOTE | 2018-10-17 12:59 | Cardiac Catheterization ---
Cardiac Cath Procedure Full Procedure Date October 17, 2018 Pre-Procedure Diagnosis Pre-Procedure Diagnosis: Acute Coronary Syndrome AUC Score AUC Score: 8 Post-Procedure Diagnosis Post-Procedure Diagnosis: Severe CAD, Successful PCI and Normal Intracardiac Pressures Procedure(s) Performed Procedure(s) Performed: Coronary Angiography, Left Heart Cath, Drug Eluting Stent and IVUS Master Black Belt Karan Reese MD Account Associate(s) Laisha Estimated Blood Loss Estimated Blood Loss: 15 Medication(s) Medication(s): Clopidogrel, Fentanyl, Heparin, Lidocaine 1%, Nicardipine, Nitroglycerin and Versed Summary of Findings Indication: Unstable angina Access: 6 Fr right radial artery Catheters: Justin, JR4, JL 3.5; JR4 guide Findings: LM -angiographic normal LAD -moderate caliber vessel, proximal luminal irregularities, 20% mid segment disease, mid to distal stent widely patent, distal vessel is small and tapers before apex. Gives off 3 small diagonals without significant disease Circumflex -moderate caliber vessel, 30-40% ostial stenosis, 30% latemid stenosis, 60-70% proximal left PLB just after takeoff of OM 2. RCA -dominant, 80-90% ostial/proximal in-stent restenosis, 70-80% mid segment stenosis, distal luminal irregularities LVEDP -18 -- PCI -- Antithrombotic therapy: Heparin, clopidogrel Procedure: RCA cannulated with JR4 guide Retail Sales Advisor 50 wire passed across lesion into distal vessel Mid RCA and proximal in-stent restenosis predilated with 2.5 compliant balloon IVUS used to assess extent of disease in mid segment and ostial segment. Found to have moderate to severe plaque extending from mid RCA stenosis back to prior stents, severe restenosis in the proximal/ostial stent. Proximal end of prior stent ended just at ostium. Dilated mid RCA lesion stented with 3.0 x 22 mm [place] drug-eluting stent Stent postdilated with 3.5 NC. Proximal prior stent dilated with 3.5 NC. Proximal in-stent restenosis restented with 3.0 x 15 mm Willem drug-eluting stent extending back to ostium of RCA Stent post-dilated with 3.5 noncompliant balloon to high atmospheres IC vasodilators administered for spasm IVUS showed well opposed stents with no apparent coronary comp occasions and minimal residual narrowing. Post procedure JASE 3 flow, stent well expanded with minimal residual stenosis a nd no apparent cardiac complications. Arterial Closure: TR band Summary: 1. Severe single vessel coronary artery disease -80-90% ostial/proximal RCA in-stent restenosis, 70-80% mid RCA stenosis 60-70% proximal left PLB 2. Borderline elevated intracardiac filling pressure 3. Successful PCI of mid RCA with 3.0 x 22 mm [place] drug-eluting stent (overlapping distal aspect of prior Xience stents from 2017). 4. Successful PCI of ostial/proximal RCA in-stent restenosis with 3.0 x 22 mm Willem SAMMI, postdilated with 3.5 NC. Recommendations: To PCU for continued monitoring Loaded with clopidogrel 300 mg in cath Continue dual-antiplatelet therapy for at least one year, likely indefinitely Continue statin, and ASCVD risk factor modification Consult cardiac Rehab Hemodynamics Rest Ao:: 118/68/91 Final Ao: 100/63/81 LV: 105/18 Recommendations Recommendations: PCI without planned CABG Specimens Specimens: None Radiation Exposure (mGy) 4123 Contrast (mls) 115 Fluids (cc crystalloids) Fluids (cc crystalloids): 120 Drains Drains: None Anesthesia Moderate Procedural Complication(s) None Disposition PCU ACC Data: Label Maker Cardiac Status Clinical evaluation leading to the procedure CAD Presenation: Unstable angina Anginal Classification: CCS IV Heart Failure: No Cardiogenic Shock within 24 Hours: No Cardiac Arrest within 24 Hours: No Imaging Studies Past 6 Months: No Stress Studies Past 6 Months: No Diagnostic Physicians Name: Karan Reese MD Status: Urgent Closure Device Percutaneous Entry Location: Radial Closure Device: Radial Band Recommendations: PCI without planned CABG PCI Indication: Unstable Angina Lesion Segment Name: Proximal RCA Culprit Artery: Yes Stenosis Prior to Rx (%): 80-90 Chronic Total Occlusion: No IVUS: Yes FFR: No Pre-Procedure JASE Flow: 3 Previously Treated Lesion: Timeframe: 1-2 years Treated with Stent: Yes In-Stent Restenosis: Yes In-Stent Thrombosis: No Stent Type: SAMMI (Xience) Yes Lesion Complexity: High/C Lesion Length (mm): 15 Thrombus Present: No Bifurcation Lesion: Yes (ostium) Guidewire Across Lesion: Stenosis Post-Procedure (%): 0 Post-Procedure JASE Flow: 3 Devices(s) Deployed: Yes Yes Intraprocedure Events Significant Disection: No Perforation: No
[2018-10-17] MEDS ORDERED: ALBUTEROL HFA 8 GM INHALER INH PRN (13:01)
[2018-10-17] MEDS ORDERED: NITROGLYCERIN SL 0.4 MG/TAB TAB SL PRN (13:30)
[2018-10-17] MEDS ORDERED: SODIUM CHLORIDE 0.9% 1000ML 1,000 ML IV SCH (13:30)
--- NOTE | 2018-10-17 16:48 | Emergency Department Note ---
Entered by Ariana Ho acting as a scribe for Katrina Sahu MD History of Present Illness General Chief complaint: Chest Pain Stated complaint: chest pain Time Seen by Provider: 10/17/18 10:39 Source: patient History of Present Illness Provider complaint: chest pain Onset (ago): hour(s) (today) Location: chest Maximum Pain Intensity: 8 Current Pain Intensity: 0 Quality: + other (pain) Associated symptoms: + nausea/vomiting (nausea) and + other ("brain freeze" sensation in throat) Treatments prior to arrival: other (Nitro) The patient is a 52 year old male who presents to the Emergency Room with complaints of chest pain today. The patient states that he was in the office waiting to have his stress test done when he developed nausea. He states that this lasted for about 1 minute and then went away. He states that when his nausea went away, his chest pain began. He also reports having a "brain freeze" sensation in his throat. The patient states that his symptoms felt similar to when he had his heart attack in 2017. He states that his chest pain got up to an 8/10. He states that he took Nitro there and states that he is currently pain- free. He states that he is a former smoker. Home Medications Home Medications Medication Instructions Recorded Confirmed Type Aspirin (Aspirin EC Low Dose) 81 mg PO QAM 30 Days #30 tab 11/01/16 Rx Clopidogrel Bisulfate (Clopidogrel) 75 mg PO QAM 30 Days #30 tab 11/01/16 Rx Metoprolol Tartrate 50 mg PO Q12 30 Days #60 tab 11/01/16 Rx ALBUTEROL HFA (VENTOLIN HFA) 2 - 4 puff INHALATION Q4 PRN #1 01/18/18 History inhaler ATORVASTATIN (LIPITOR) 80 mg PO QPM #0 tab 01/18/18 History Lisinopril (Zestril) 40 mg PO QAM #0 tab 01/18/18 History Nitroglycerin (Nitrostat) 0.4 mg UT PRN #0 btl 01/18/18 History TAMSULOSIN HCL (FLOMAX) 0.4 mg PO DAILY #0 cap 01/18/18 History Allergies Allergy/AdvReac Type Severity Reaction Status Date / Time No Known Allergies Allergy Unverified 01/18/18 10:34 Past Med/Surg History Medical History Acute LA (Acute) Social History Preferred Language: Yi Beliefs That Will Affect Care: None Current Living Situation: Spouse Other Information That Helps Us Care for You: No Feels Safe at Home: Yes Safety Concerns: Feels Safe At This Time Smoking Status: Former smoker Hx Alcohol Use: No Hx Substance Use: No Review of Systems See HPI for pertinent positives & negatives. and A total of 10 systems reviewed and were otherwise negative Physical Exam Vital Signs Vital Signs - 24 hr 10/18/18 11:28 10/18/18 11:35 Temperature 36.9 C 37.0 C Temperature Source Oral Pulse Rate [Left Brachial] 67 70 Respiratory Rate 18 18 Blood Pressure [Left Arm] 106/58 L 112/69 Blood Pressure Mean [Left Arm] 83 Blood Pressure Position [Left Arm] Sitting Pulse Oximetry 96 98 Vital signs reviewed. General: Well-appearing 52 yo male, in no significant distress. HEENT: No scleral icterus, PERRLA, neck supple. Atraumatic. Cardiovascular: Regular rate and rhythm, no extra sounds. Pulmonary: Clear to auscultation bilaterally, normal work of breathing. Abdomen: Soft, nontender, nondistended, positive bowel sounds. Musculoskeletal: Atraumatic, no peripheral edema. Neurologic: Patient awake alert and oriented x 3. Skin: Warm, dry, no rash Course 1100: The patient was evaluated in room D4B, and a complete history and physical examination were performed. 1111: The patient was sent to the catheterization lab and will be evaluated for further management. Administered Medications Discontinued Medications Aspirin (Ecotrin Ectab) 81 mg PO QAM [facility] Stop: 11/17/18 08:59 Last Admin: 10/18/18 07:56 Dose: 81 mg Documented by: [id number] Atorvastatin Calcium (Lipitor) 80 mg PO QPM [facility] Stop: 11/16/18 20:59 Last Admin: 10/17/18 20:31 Dose: 80 mg Documented by: [id number] Clopidogrel Bisulfate (Plavix) Confirm Administered Dose 300 mg .ROUTE .[employer]-MED ONE Stop: 10/17/18 12:42 Last Admin: 10/17/18 12:45 Dose: 300 mg Documented by: [id number] Clopidogrel Bisulfate (Plavix) 75 mg PO QAM [facility] Stop: 11/17/18 08:59 Last Admin: 10/18/18 07:55 Dose: 75 mg Documented by: [id number] Fentanyl Citrate (Fentanyl Citrate) Confirm Administered Dose 100 mcg .ROUTE .ST-MED ONE Stop: 10/17/18 11:27 Last Admin: 10/17/18 12:45 Dose: 100 mcg Documented by: [id number] Heparin Sodium (Porcine) (Heparin Iv Bolus (T[employer]immer Hand Use Only)) Confirm Administered Dose 10,000 units .ROUTE .STK-MED ONE Stop: 10/17/18 11:27 Last Admin: 10/17/18 12:45 Dose: 9,000 units Documented by: [id number] Heparin Sodium/Sodium Chloride (Heparin/Nss 1000 Unit/500ml Flush Bag) Confirm Administered Dose 3,000 units IV .ST-[facility] ONE Stop: 10/17/18 11:27 Last Admin: 10/17/18 11:41 Dose: 3,000 units Documented by: [id number] Sodium Chloride (Nss 1000ml) 1,000 mls @ 100 mls/hr IV .Q10H [facility] Stop: 10/17/18 18:29 Last Admin: 10/17/18 13:55 Dose: Not Given Documented by: [id number] Lisinopril (Zestril) 40 mg PO QAM [facility] Stop: 11/17/18 08:59 Last Admin: 10/18/18 07:56 Dose: 40 mg Documented by: [id number] Metoprolol Tartrate (Lopressor) 50 mg PO Q12 [facility] Stop: 11/16/18 20:59 Last Admin: 10/18/18 07:56 Dose: 50 mg Documented by: [id number] Admin: 10/17/18 20:30 Dose: 50 mg Documented by: [id number] Midazolam HCl (Versed) Confirm Administered Dose 2 mg .ROUTE .ST-MED ONE Stop: 10/17/18 11:26 Last Admin: 10/17/18 12:44 Dose: 2 mg Documented by: [id number] Nicardipine HCl (Cardene) Confirm Administered Dose 25 mg .ROUTE .ST-MED ONE Stop: 10/17/18 11:27 Last Admin: 10/17/18 11:41 Dose: 25 mg Documented by: [id number] Nitroglycerin/Dextrose (Nitroglycerin/D5w 100 Mcg/Ml 20ml Syringe) Confirm Administered Dose 2,000 mcg .ROUTE .STK-MED ONE Stop: 10/17/18 11:27 Last Admin: 10/17/18 11:41 Dose: 2,000 mcg Documented by: [id number] Tamsulosin HCl (Flomax) 0.4 mg PO DAILY [facility] Stop: 11/17/18 08:59 Last Admin: 10/18/18 07:55 Dose: 0.4 mg Documented by: [id number] Medical Decision Making Differential Diagnosis Differential Diagnoses: Acute coronary syndrome, pulmonary embolus, aortic dissection, musculoskeletal pain, pneumonia, pleural effusion, pneumothorax Medical Records Attestation: I reviewed the patient's medical records. Home Medications Current Medication List: was personally reviewed by me Laboratory Data Attestation: I reviewed the patient's lab results. Result diagrams: 10/18/18 07:28 10/18/18 07:28 Lab Results 10/17/18 10/17/18 10/17/18 Range/Units 10:40 10:40 10:51 WBC 7.80 (4.8-10.8) K/uL RBC 4.56 L (4.7-6.1) M/uL Hgb 14.3 (14.0-18.0) g/dL Hct 42.2 (42-52) % MCV 92.5 (80-100) fL MCH 31.4 (25-34) pg MCHC 33.9 (32-36) g/dL RDW Std Deviation 47.4 H (36.4-46.3) fL RDW Coeff of Sil 14.1 (11.5-14.5) % Plt Count 223 (130-400) K/uL MPV 11.4 H (7.4-10.4) fL Immature Gran % (Auto) 0.1 % Neut % (Auto) 54.8 % Lymph % (Auto) 31.3 % Runnels % (Auto) 11.7 % Eos % (Auto) 1.8 % Baso % (Auto) 0.3 % Immature Gran # (Auto) 0.01 (0.00-0.02) K/uL Neut # (Auto) 4.28 (1.4-6.5) K/uL Lymph # (Auto) 2.44 (1.2-3.4) K/uL Runnels # (Auto) 0.91 H (0.11-0.59) K/uL Eos # (Auto) 0.14 (0-0.5) K/uL Baso # (Auto) 0.02 (0-0.2) K/uL Activ Coag Time Kaolin (94-140) SECONDS Sodium 139 (136-145) mmol/L Potassium 4.4 (3.5-5.1) mmol/L Chloride 108 H (98-107) mmol/L Carbon Dioxide 26 (21-32) mmol/L Anion Gap 5.0 (3-11) BUN 17 (7-18) mg/dl Creatinine 0.87 (0.6-1.4) mg/dl Est Cr Clr Drug Dosing 124.8 ml/min Est GFR ( Amer) 115.0 Est GFR (Non-Af Amer) 99.2 BUN/Creatinine Ratio 19.1 (10-20) Glucose 102 H (70-99) mg/dl Estimat Average Glucose mg/dl Hemoglobin A1c (4.5-5.6) % Calcium 8.6 (8.5-10.1) mg/dl Total Bilirubin 0.4 (0.2-1) mg/dl AST 18 (15-37) U/L ALT 40 (12-78) U/L Alkaline Phosphatase 118 H (45-117) U/L POC Troponin I < 0.03 (0-0.045) ng/ml Total Protein 7.0 (6.4-8.2) gm/dl Albumin 3.7 (3.4-5.0) gm/dl Globulin 3.3 (2.5-4.0) gm/dl Albumin/Globulin Ratio 1.1 (0.9-2) Triglycerides (0-150) mg/dl Cholesterol (0-200) mg/dl LDL Cholesterol, Calc mg/dl VLDL Cholesterol, Calc mg/dl HDL Cholesterol mg/dl Cholesterol/HDL Ratio Lipase 767 H (73-393) U/L 10/17/18 10/18/18 10/18/18 Range/Units 11:06 07:28 07:28 WBC 8.02 (4.8-10.8) K/uL RBC 4.73 (4.7-6.1) M/uL Hgb 14.9 (14.0-18.0) g/dL Hct 43.5 (42-52) % MCV 92.0 (80-100) fL MCH 31.5 (25-34) pg MCHC 34.3 (32-36) g/dL RDW Std Deviation 46.4 H (36.4-46.3) fL RDW Coeff of Sil 13.8 (11.5-14.5) % Plt Count 224 (130-400) K/uL MPV 10.9 H (7.4-10.4) fL Immature Gran % (Auto) 0.4 % Neut % (Auto) 56.3 % Lymph % (Auto) 32.7 % Runnels % (Auto) 8.5 % Eos % (Auto) 1.9 % Baso % (Auto) 0.2 % Immature Gran # (Auto) 0.03 H (0.00-0.02) K/uL Neut # (Auto) 4.52 (1.4-6.5) K/uL Lymph # (Auto) 2.62 (1.2-3.4) K/uL Runnels # (Auto) 0.68 H (0.11-0.59) K/uL Eos # (Auto) 0.15 (0-0.5) K/uL Baso # (Auto) 0.02 (0-0.2) K/uL Activ Coag Time Kaolin 279 H (94-140) SECONDS Sodium 137 (136-145) mmol/L Potassium 4.3 (3.5-5.1) mmol/L Chloride 107 (98-107) mmol/L Carbon Dioxide 26 (21-32) mmol/L Anion Gap 5.0 (3-11) BUN 15 (7-18) mg/dl Creatinine 0.85 (0.6-1.4) mg/dl Est Cr Clr Drug Dosing 119.4 ml/min Est GFR ( Amer) 116.1 Est GFR (Non-Af Amer) 100.2 BUN/Creatinine Ratio 17.0 (10-20) Glucose 109 H (70-99) mg/dl Estimat Average Glucose mg/dl Hemoglobin A1c (4.5-5.6) % Calcium 8.8 (8.5-10.1) mg/dl Total Bilirubin (0.2-1) mg/dl AST (15-37) U/L ALT (12-78) U/L Alkaline Phosphatase (45-117) U/L POC Troponin I (0-0.045) ng/ml Total Protein (6.4-8.2) gm/dl Albumin (3.4-5.0) gm/dl Globulin (2.5-4.0) gm/dl Albumin/Globulin Ratio (0.9-2) Triglycerides 125 (0-150) mg/dl Cholesterol 131 (0-200) mg/dl LDL Cholesterol, Calc 75 mg/dl VLDL Cholesterol, Calc 25 mg/dl HDL Cholesterol 31 mg/dl Cholesterol/HDL Ratio 4 Lipase (73-393) U/L 10/18/18 Range/Units 07:28 WBC (4.8-10.8) K/uL RBC (4.7-6.1) M/uL Hgb (14.0-18.0) g/dL Hct (42-52) % MCV (80-100) fL MCH (25-34) pg MCHC (32-36) g/dL RDW Std Deviation (36.4-46.3) fL RDW Coeff of Sil (11.5-14.5) % Plt Count (130-400) K/uL MPV (7.4-10.4) fL Immature Gran % (Auto) % Neut % (Auto) % Lymph % (Auto) % Runnels % (Auto) % Eos % (Auto) % Baso % (Auto) % Immature Gran # (Auto) (0.00-0.02) K/uL Neut # (Auto) (1.4-6.5) K/uL Lymph # (Auto) (1.2-3.4) K/uL Runnels # (Auto) (0.11-0.59) K/uL Eos # (Auto) (0-0.5) K/uL Baso # (Auto) (0-0.2) K/uL Activ Coag Time Kaolin (94-140) SECONDS Sodium (136-145) mmol/L Potassium (3.5-5.1) mmol/L Chloride (98-107) mmol/L Carbon Dioxide (21-32) mmol/L Anion Gap (3-11) BUN (7-18) mg/dl Creatinine (0.6-1.4) mg/dl Est Cr Clr Drug Dosing ml/min Est GFR ( Amer) Est GFR (Non-Af Amer) BUN/Creatinine Ratio (10-20) Glucose (70-99) mg/dl Estimat Average Glucose 137 mg/dl Hemoglobin A1c 6.4 H (4.5-5.6) % Calcium (8.5-10.1) mg/dl Total Bilirubin (0.2-1) mg/dl AST (15-37) U/L ALT (12-78) U/L Alkaline Phosphatase (45-117) U/L POC Troponin I (0-0.045) ng/ml Total Protein (6.4-8.2) gm/dl Albumin (3.4-5.0) gm/dl Globulin (2.5-4.0) gm/dl Albumin/Globulin Ratio (0.9-2) Triglycerides (0-150) mg/dl Cholesterol (0-200) mg/dl LDL Cholesterol, Calc mg/dl VLDL Cholesterol, Calc mg/dl HDL Cholesterol mg/dl Cholesterol/HDL Ratio Lipase (73-393) U/L Imaging Data Radiologist's Impression: Radiology results as stated below per my review and the radiologist's interpretation: SINGLE VIEW CHEST CLINICAL HISTORY: Atypical chest pain. FINDINGS: An AP, portable, upright chest radiograph is compared to study dated 10/30/2016 and correlated with chest CT dated 03/21/2018. The examination is degraded by portable technique and patient rotation. The heart is top normal for projection, and there is mild atherosclerotic calcification of the thoracic aorta. The lungs and pleural spaces are clear. No pneumothorax is seen. The bony thorax is grossly intact. IMPRESSION: No acute cardiopulmonary abnormality. Electronically signed by: Maury Kiran M.D. 10/17/2018 11:05 AM ECG Data Attestation: I personally reviewed and interpreted this ECG as follows: Indication: chest pain Rate (beats per minute): 61 Rhythm: normal sinus Findings: + other (previous inferior infarct, abnormality in the QRS complex noted in the inferior leads) and + ST elevation (questionable [address] elevation in the inferior and lateral leads) Blood Pressure Blood Pressure Findings: Elevated blood pressure Additional Comments: further management by catheterization lab MDM Narrative This patient was evaluated and appeared to be in no significant distress. Upon my evaluation, cardiology, Dr. Dietrich is at the bedside. Laboratory work was ordered. Patient had received aspirin and nitroglycerin prior to arrival. EKG reveals no evidence of acute ST elevation LA. Chest x-ray was obtained and reveals no evidence of acute abnormality. Patient was pain-free at the time of my evaluation. Arrangements were made to take the patient to the catheterization lab with Dr. Reese. Patient is aware of the plan and agrees. Impression & Plan ACS (acute coronary syndrome) Discharge Plan Visit Data *Final* Discharge Date/Time: 10/17/18 11:18 Chief Complaint: Chest Pain Stated Complaint: chest pain ED Provider: Katrina Sahu Discharge Problem: ACS (acute coronary syndrome) Patient Disposition: Admitted As Inpatient Discharge Instructions Interventions: ED Discharge Assessment Last Done: 10/17/18 11:18 The scribe's documentation has been prepared under my direction and personally reviewed by me in its entirety. I confirm that the note above accurately reflects all work, treatment, procedures, and medical decision making performed by me.
[2018-10-17] MEDS: METOPROLOL TARTRATE 50 MG TAB PO SCH (20:30)
[2018-10-17] MEDS ORDERED: ATORVASTATIN 40 MG TAB PO SCH (21:00)
[2018-10-18 07:42] LABS: Basophils # (auto) 0.02 K/uL (0-0.2); Basophils % (auto) 0.2 %; Eosinophils # (auto) 0.15 K/uL (0-0.5); Eosinophils % (auto) 1.9 %; Hematocrit (blood only) 43.5 % (42-52); Hemoglobin 14.9 g/dL (14.0-18.0); Immature Granulocytes # (auto) 0.03 K/uL (0.00-0.02); Immature Granulocytes % (auto) 0.4 %; Lymphocytes # (auto) 2.62 K/uL (1.2-3.4); Lymphocytes % (auto) 32.7 %; Mean Corpuscular Hgb Conc 34.3 g/dL (32-36); Mean Platelet Volume 10.9 fL (7.4-10.4); Monocytes # (auto) 0.68 K/uL (0.11-0.59); Monocytes % (auto) 8.5 %; Neutrophils # (auto) 4.52 K/uL (1.4-6.5); Neutrophils % (auto) 56.3 %; Platelet Count 224 K/uL (130-400); RDW Coefficient of Variation 13.8 % (11.5-14.5); RDW Standard Deviation 46.4 fL (36.4-46.3); Red Blood Count 4.73 M/uL (4.7-6.1); White Blood Count 8.02 K/uL (4.8-10.8)
[2018-10-18] MEDS: METOPROLOL TARTRATE 50 MG TAB PO SCH (07:56)
[2018-10-18 08:16] LABS: Calcium 8.8 mg/dl (8.5-10.1); Creatinine Clr Calc Pharmacy 119.4 ml/min; Est GFR (African American) 116.1; Est GFR (Non-African American) 100.2; Potassium 4.3 mmol/L (3.5-5.1)
[2018-10-18] MEDS ORDERED: CLOPIDOGREL BISULFATE 75 MG TAB PO SCH (09:00)
[2018-10-18] MEDS ORDERED: CLOPIDOGREL BISULFATE 75 MG PO SCH (09:00)
[2018-10-18] MEDS ORDERED: LISINOPRIL 40 MG TAB PO SCH (09:00)
[2018-10-18] MEDS ORDERED: ASPIRIN 81 MG ECTAB PO SCH (09:00)
[2018-10-18] MEDS ORDERED: TAMSULOSIN HCL 0.4 MG CAP PO SCH (09:00)
[2018-10-18] MEDS ORDERED: ASPIRIN 81 MG PO SCH (09:00)
[2018-10-18 09:54] LABS: Estimated Average Glucose 137 mg/dl; Hemoglobin A1C 6.4 % (4.5-5.6)
[2018-10-18 11:35] VITALS: BP 112/69; PULSE 70; TEMP 98.6; O2SAT 98
--- NOTE | 2018-10-18 17:23 | Cardiology Consultation ---
Date of Consultation October 18, 2018 Assessment & Plan (1) ACS (acute coronary syndrome): Patient here with resting chest pain reminiscent of prior pain with WI. EKG ST abnormality is more prominent. Reviewed prior coronary angiography and recent testing. Plan to proceed with cardiac catheterization. Discussed risk, benefits, alternatives of procedure and he is willing to proceed. Plan to perform via right radial artery. History of Present Illness Attending Physician: Gen Dietrich MD History of Present Illness Patient was seen at outpatient cardiology office today for stress test in the setting of intermittent chest pain. Prior to test reported active chest pain with associated shortness of breath. EKG showed more prominent ST changes inferiorly and decision made to send directly for urgent cardiac catheterization. See below for further details from outpatient note from physician financial services assistant Jose Perez. Mr. Singh is a 52-year-old male with a history of Dyslipidemia, Hypertension, Paroxysmal Atrial Fibrillation, COPD, Atypical Chest Pain Syndrome, and CAD s/p Inferior WI 10/30/2016 s/p Ostial and Proximal RCA stents x 2 (Xience 3.0 x 18 mm SAMMI, 2.75 x 23 mm SAMMI) and a Mid LAD Stent (Xience 2.25 x 18 mm SAMMI) -- who presents to our office today for a scheduled Stress Echocardiogram. While sitting in the waiting room, the patient felt nauseated for a brief period of time, and this was followed by the onset right parasternal chest pain which radiated into his anterior neck and throat (this is very reminiscent of his prior anginal complaints). After he was hooked up to the EKG machine, he is noted to have inferior ST segment elevation which appears to be chronic but it is more pronounced today. Because of these symptoms consistent with Unstable Angina Pectoris -- stress echocardiogram was canceled, EMS was initiated, and we made arrangements for a stat Cardiac Catheterization / Coronary Angiography -- both Dr. Dietrich and Dr. Reese are aware of this patient. While we were waiting for the ambulance to arrive, the patient received 1 dose of sublingual nitroglycerin 0.4 mg which did not seem to have much of an impact on his symptoms. His ST segment elevations persisted. Patient was hemodynamically stable. Vital signs monitored. I had a discussion with the patient today regarding cardiac catheterization -- including how the procedure is done, the information gathered by doing the study, and what he should expect when he arrives at the hospital. We discussed the risks, benefits, potential outcomes of cardiac catheterization. Patient agrees to proceed. Please note that the patient to call his usual medications this morning. He had a couple cough year earlier today, but has not eaten since last evening. Allergies Allergy/AdvReac Type Severity Reaction Status Date / Time No Known Allergies Allergy Unverified 01/18/18 10:34 Home Medications Home Medications Medication Instructions Recorded Confirmed Type Aspirin (Aspirin EC Low Dose) 81 mg PO QAM 30 Days #30 tab 11/01/16 Rx Clopidogrel Bisulfate (Clopidogrel) 75 mg PO QAM 30 Days #30 tab 11/01/16 Rx Metoprolol Tartrate 50 mg PO Q12 30 Days #60 tab 11/01/16 Rx ALBUTEROL HFA (VENTOLIN HFA) 2 - 4 puff INHALATION Q4 PRN #1 01/18/18 History inhaler ATORVASTATIN (LIPITOR) 80 mg PO QPM #0 tab 01/18/18 History Lisinopril (Zestril) 40 mg PO QAM #0 tab 01/18/18 History Nitroglycerin (Nitrostat) 0.4 mg UT PRN #0 btl 01/18/18 History TAMSULOSIN HCL (FLOMAX) 0.4 mg PO DAILY #0 cap 01/18/18 History Patient History Medical History Acute WI (Acute) Social History Preferred Language: Sinhala Beliefs That Will Affect Care: None Current Living Situation: Spouse Other Information That Helps Us Care for You: No Feels Safe at Home: Yes Safety Concerns: Feels Safe At This Time Smoking Status: Former smoker Hx Alcohol Use: No Hx Substance Use: No Physical Exam Vital Signs (Past 24 Hours): Last Vital Signs Temp 37.0 C 10/18/18 11:35 Pulse 70 10/18/18 11:35 Resp 18 10/18/18 11:35 BP 112/69 10/18/18 11:35 Pulse Ox 98 10/18/18 11:35 Constitutional: WD/WN, vitals as above Eyes: PERRL, conjunctivae normal, anicteric sclerae Neck: trachea midline, no thyromegaly Respiratory: normal respiratory effort, lungs clear to auscultation Cardiovascular: RRR, no murmur, no edema Gastrointestinal (Abdomen): normal bowel sounds, soft, nontender, no hepatosplenomegaly Skin: no rashes, warm and dry Psychiatric: A+Ox3, euthymic affect
--- NOTE | 2018-10-18 17:47 | Discharge Summary ---
Date of Service October 18, 2018 Admission HPI Per Admitting Provider Mr. Singh is a 52-year-old male with a history of Dyslipidemia, Hypertension, Paroxysmal Atrial Fibrillation, COPD, Atypical Chest Pain Syndrome, and CAD s/p Inferior [place] 10/30/2016 s/p Ostial and Proximal RCA stents x 2 (Xience 3.0 x 18 mm SAMMI, 2.75 x 23 mm SAMMI) and a Mid LAD Stent (Xience 2.25 x 18 mm SAMMI) -- who presents to [facility] cardiology office today for a scheduled Stress Echocardiogram -- but unfortunately has an abnormal EKG, inferior ST segment elevations with active chest and neck pain along with nausea -- which is similar to his prior Angina Pectoris and concerning for ACS. Patient sent to [facility] ED for urgent cardiac catheterization. Admission Exam (Per Admitting) Constitutional WD/WN, vitals as above Eyes PERRL, conjunctivae normal, anicteric sclerae ENMT Mallampati Class: III Neck trachea midline, no thyromegaly Respiratory normal respiratory effort, lungs clear to auscultation Cardiovascular RRR, no murmur, no edema Gastrointestinal (Abdomen) normal bowel sounds, soft, nontender, no hepatosplenomegaly Skin no rashes, warm and dry Psychiatric A+Ox3, euthymic affect Specialty Data Cardiology Cardiac catheterization/PCI 10/17/2018: 1. Severe single vessel coronary artery disease -80-90% ostial/proximal RCA in-stent restenosis, 70-80% mid RCA stenosis 60-70% proximal left PLB 2. Borderline elevated intracardiac filling pressure 3. Successful PCI of mid RCA with 3.0 x 22 mm [place] drug-eluting stent (overlapping distal aspect of prior Xience stents from 2017). 4. Successful PCI of ostial/proximal RCA in-stent restenosis with 3.0 x 22 mm Willem SAMMI, postdilated with 3.5 NC. Discharge Data Consultations 10/17/18 11:30 ED Decision to Admit Stat Procedures Performed Operation Date: 10/17/18 10:55 Actual Procedures p Cath, Left with Cors and Vent - Xiang Reese MD s Cineradiography w/Routine Exam(Not Applicable) - Xiang Reese MD p Drug Eluting Stent SGl Vessel(Not Applicable) - Xiang Reese MD s IVUS Coronary Single Vessel(Not Applicable) - Xiang Reese MD Hospital Course (1) ACS (acute coronary syndrome): Cardiac catheterization revealed severe ostial/proximal RCA in-stent restenosis and severe mid RCA disease. Was treated with 2 new drug-eluting stents with good angiographic result. Post procedure patient admitted for observation. Patient remained chest pain-free, electrically stable on telemetry. On hospital day 2 no apparent access site complications. Feeling well and patient discharged home. Will continue on prior dual antiplatelet therapy with aspirin and clopidogrel. We discussed dietary and exercise modifications. Also recommended cardiac rehab. Will follow up with his primary diabetes solutions specialist Dr. Forrest in 2 weeks.
== END 2018-10-18 13:34 | disposition home or self-care (01) ==
LOC: ED 10:22 → CC 11:00 → 2E 11:00